=== PATIENT | female | born 1995 | race Caucasian/White ===

== ENCOUNTER 2016-03-28 | Outpatient (CLI) | payer OTHER | END 2016-03-28 06:21 | disposition critical access hospital (66) | CPT/HCPCS: A0425; A0429 ==

== ENCOUNTER 2016-03-28 06:41 | Emergency (ER) | payer OTHER ==
[2016-03-28] MEDS ORDERED: ONDANSETRON 4 MG/2 ML VIAL IVP STA (07:44)
[2016-03-28] MEDS ORDERED: SODIUM CHLORIDE 0.9% 1,000 ML IV ONE (07:44)
[2016-03-28] MEDS ORDERED: HYDROmorphone 1 MG/ML SYRINGE IVP STA (07:44)
[2016-03-28] MEDS ORDERED: KETOROLAC 60 MG/2 ML VIAL IVP STA (07:44)
[2016-03-28] MEDS ORDERED: ONDANSETRON 4 MG/2 ML VIAL ONE (07:48)
[2016-03-28] MEDS ORDERED: HYDROmorphone 1 MG/ML SYRINGE ONE (07:48)
[2016-03-28] MEDS ORDERED: KETOROLAC 30 MG/ML VIAL ONE (07:48)
[2016-03-28] MEDS ORDERED: cefTRIAXone 1 GM in SODIUM CHLORIDE 0.9% MINIBAG 100 ML IV STA (09:10)
[2016-03-28] MEDS ORDERED: cefTRIAXone 1 GM VIAL ONE (09:17)
== END 2016-03-28 11:01 | disposition home or self-care (01) ==
DX: O26.91 Pregnancy related conditions, unspecified, first trimester (principal); R10.32 Left lower quadrant pain; R10.31 Right lower quadrant pain; O23.11 Infections of bladder in pregnancy, first trimester; O99.511 Diseases of the respiratory system complicating pregnancy, first trimester; J06.9 Acute upper respiratory infection, unspecified; Z3A.10 10 weeks gestation of pregnancy

== ENCOUNTER 2016-03-28 20:04 | Emergency (ER) | payer OTHER ==
[2016-03-28] MEDS ORDERED: HYDROcod/ACETAM 5/325 MG TABLET PO STA (20:56)
[2016-03-28] MEDS ORDERED: cefTRIAXone 1 GM VIAL IM STA (20:56)
[2016-03-28] MEDS ORDERED: cefTRIAXone 1 GM VIAL ONE (20:59)
[2016-03-28] MEDS ORDERED: HYDROcod/ACETAM 5/325 MG TABLET ONE (20:59)
== END 2016-03-29 00:24 | disposition home or self-care (01) ==
DX: O23.01 Infections of kidney in pregnancy, first trimester (principal); O23.11 Infections of bladder in pregnancy, first trimester; O26.91 Pregnancy related conditions, unspecified, first trimester; R10.32 Left lower quadrant pain; R10.31 Right lower quadrant pain; O99.511 Diseases of the respiratory system complicating pregnancy, first trimester; J06.9 Acute upper respiratory infection, unspecified; Z3A.10 10 weeks gestation of pregnancy
CPT/HCPCS: 36415; 76705; 76801; 80053; 81001; 81003; 83690; 85025; 87275; 87276; 96365; 96372; 96375; 99283; 99284; A9270; J1170

== ENCOUNTER 2016-06-08 11:27 | Outpatient (CLI) | payer OTHER | END 2016-06-08 12:49 | disposition home or self-care (01) | DX: O23.12 Infections of bladder in pregnancy, second trimester (principal); Z3A.20 20 weeks gestation of pregnancy ==

== ENCOUNTER 2016-06-16 10:20 | Emergency (ER) | payer OTHER | END 2016-06-16 15:10 | disposition home or self-care (01) | DX: O99.89 Other specified diseases and conditions complicating pregnancy, childbirth and the puerperium (principal); R07.9 Chest pain, unspecified; M54.5 Low back pain; M25.512 Pain in left shoulder; Z3A.22 22 weeks gestation of pregnancy ==

== ENCOUNTER 2016-08-16 23:01 | Observation (INO) | payer OTHER ==
[2016-08-17 01:01] LABS: BASOPHILS % (AUTO) 0.4 %; EOSINOPHILS % (AUTO) 0.4 %; HCT - HEMATOCRIT 31.2 % (37.0-47.0); HGB - HEMOGLOBIN 10.3 g/dL (12.0-16.0); LYMPHOCYTES % (AUTO) 20.3 %; MEAN CORPUSCULAR HEMOGLOBIN 31.4 pg (27.0-31.0); MEAN CORPUSCULAR HGB CONC 33.1 g/dL (32.0-36.0); MEAN CORPUSCULAR VOLUME 94.8 fL (81.0-99.0); MEAN PLATELET VOLUME 6.6 fL (7.9-10.8); MONOCYTES % (AUTO) 10.1 %; NEUTROPHILS % (AUTO) 68.8 %; RED BLOOD COUNT 3.29 10^6/uL (4.20-5.40); RED CELL DISTRIBUTION WIDTH 13.2 % (12.0-15.0); UNCORRECTED WHITE BLOOD COUNT 20.9 x10^3/uL; WHITE BLOOD COUNT 20.9 x10^3/uL (4.8-10.8)
[2016-08-17 01:02] LABS: BILIRUBIN,URINE NEGATIVE (NEGATIVE)
[2016-08-17 01:09] LABS: WBC,URINE 0-3 /HPF (0-5)
[2016-08-17 01:55] LABS: BAND NEUTROPHILS % (MANUAL) 3 %; LYMPHOCYTES % (MANUAL) 23 %; NEUTROPHILS % (MANUAL) 64 %; TOTAL CELLS COUNTED 100
[2016-08-17 01:56] LABS: NP AUTO DIFFERENTIAL? YES; NP MAN DIFFERENTIAL? NO; PLATELET ESTIMATE, MANUAL INCREASED (>450,000) (NORMAL); PLATELET MORPHOLOGY NORMAL APPEARANCE (NORMAL)
[2016-08-17] MEDS ORDERED: LACTATED RINGERS 1,000 ML IV SCH ×2 (02:00→02:31)
[2016-08-17 02:01] LABS: ALBUMIN/GLOBULIN RATIO 0.8 (1.0-2.2); BILIRUBIN,TOTAL 0.2 mg/dL (0.2-1.0); BUN - BLOOD UREA NITROGEN < 5 mg/dL (6-20); CALCIUM 8.6 mg/dL (8.5-10.3); CARBON DIOXIDE - CO2 21 mmol/L (21-32); CHLORIDE 106 mmol/L (101-111); CREATININE 0.3 mg/dL (0.4-1.0); GFR - MDRD 284 (>89); GLUCOSE 102 mg/dL (70-100); POTASSIUM 3.6 mmol/L (3.5-5.0); SODIUM 134 mmol/L (135-145); TOTAL PROTEIN 6.4 g/dL (6.7-8.2)
[2016-08-17] MEDS ORDERED: SODIUM CHLORIDE FLUSH 0.9% 10 ML SYRINGE IVP PRN (02:21)
[2016-08-17 02:26] LABS: RAPID STREP SCREEN REAGENT QC YELLOW (YELLOW)
--- NOTE | 2016-08-17 03:46 | Ultrasound Preliminary Report ---
Exam: US Retroperitoneal IMPRESSION: 1. Mild bilateral hydronephrosis, possibly related to . 2. Bilateral ureteral jets are seen in the bladder. 3. Postvoid residual 42 cc. [facility] SITE ID: [id number]
--- NOTE | 2016-08-17 03:48 | Ultrasound Report ---
EXAM: RENAL ULTRASOUND EXAM DATE: 08/17/2016 03:23 AM. CLINICAL HISTORY: Elevated white count. Abdominal pain and back pain. Recent urinary tract infection. COMPARISON: None. TECHNIQUE: Real-time scanning was performed with static images obtained. FINDINGS: Right Kidney: 11.4 x 6.6 x 6.8 cm. Mild hydronephrosis. Left Kidney: 11.1 x 6.2 x 5.8 cm. Mild hydronephrosis. Bladder: Bilateral jets seen. The prevoid bladder volume was 154 cc. The postvoid bladder volume was 112 cc. IMPRESSION: 1. Mild bilateral hydronephrosis, possibly related to . 2. Bilateral ureteral jets are seen in the bladder. 3. Postvoid residual 42 cc. [facility] Referring Provider Line: [phone] SITE ID: [id number]
--- NOTE | 2016-08-17 03:53 | Ultrasound Preliminary Report ---
Exam: US OB Limited IMPRESSION: 1. Single live intrauterine gestation with normal interval growth concordant with the established EDC of 10/24/2016. 2. Normal LLOYD and placenta. [facility] SITE ID: [id number]
--- NOTE | 2016-08-17 03:55 | Ultrasound Report ---
EXAM: THIRD TRIMESTER OBSTETRIC ULTRASOUND EXAM DATE: 08/17/2016 03:16 AM. CLINICAL HISTORY: Elevated WBC, abd and back pain, recent UTI. LMP 01/18/2016. COMPARISON: 03/28/2016. TECHNIQUE: Real-time scanning performed with static images. FINDINGS: Fetus: Single live intrauterine gestation. Presentation: Oblique. Heart Rate: 156 beats per minute. Placenta: Anterior and fundal position. No placenta previa or abruption. Amniotic Fluid Index (LLOYD): 15.9 cm (normal 8-25). Biometry: Bi-parietal diameter (BPD): 7.5 cm = 30 weeks 1 days. Head circumference (HC): 27.3 cm = 29 weeks 6 days. Abdominal circumference (AC): 24.0 cm = 28 weeks 2 days. Femur length (FL): 5.5 cm = 28 weeks 6 days. Dates: Composite gestational age (this exam): 29 weeks 1 days (EDC 11/01/2016). Gestational age (based on LMP): 30 weeks 2 days (EDC 10/24/2016). Estimated weight: 1279 gm, 26.7 percentile. Maternal Structures: Cervix: Long and closed measuring 3.4 cm. Kidneys: See renal ultrasound report. IMPRESSION: 1. Single live intrauterine gestation with normal interval growth concordant with the established EDC of 10/24/2016. 2. Normal LLOYD and placenta. [facility] Referring Provider Line: [phone] SITE ID: [id number]
[2016-08-17] MEDS ORDERED: SODIUM CHLORIDE FLUSH 0.9% 10 ML SYRINGE IVP SCH (06:00)
[2016-08-17] MEDS ORDERED: POLYETHYLENE GLYCOL 3350 17 GM PACKET PO SCH (09:00)
--- NOTE | 2016-08-17 09:20 | HISTORY & PHYSICAL EXAMINATION ---
DATE OF ADMISSION: 08/17/2016 DIAGNOSES 1. Sporadic back pain; rule out labor. 2. Status post splenectomy. 3. No evidence of labor. HISTORY OF PRESENT ILLNESS: The patient is a 21-year-old primigravida at 30 weeks and 2 days gestation who receives her care at [facility] and reports 36 hours of periodic back pain and spasm and suspects labor. Pain begins in the lumbar region and radiates forward to the uterus. She has no suspicion of leaking fluid, foul discharge, or bloody show. She was seen earlier in the day at the [facility] and sent home with a negative urinalysis. 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 She states she has had vaccinations for pneumococcus, meningococcus, and influenza. She was seen roughly 10 days ago for a UTI and given a course of nitrofurantoin. Other obstetrical concerns include an AP contraction of the pelvis and she may be a candidate for section. ALLERGIES: PENICILLIN CAUSES HIVES AND SWELLING. MEDICATIONS 1. vitamins and iron. 2. Ranitidine. 3. Tylenol. PHYSICAL EXAMINATION GENERAL: The patient lying comfortably in bed, no distress. VITAL SIGNS: Temperature 36.4, blood pressure 99/57. fibronectin negative. HEENT: Supple neck. Moist mucous membranes. ABDOMEN: Laparotomy scar. No hepatosplenomegaly. No upper quadrant tenderness. UTERUS: Appropriate for 30 weeks, normal resting tone. No contractions palpable. EXTERNAL GENITALIA: No skin lesions. VAGINA: No blood, discharge, or fluid. CERVIX: Long, closed, thick and high. BONY PELVIS: Evaluation not accomplished. EXTERNAL HEART TRACING: Baseline 140s, accelerations, no contractions. Overall, cat 1. EXTREMITIES: Nonedematous. LABORATORY: Urinalysis pending. CBC pending. ASSESSMENT: The patient has periodic lumbar pain radiating to the uterus in suspected labor. Cervical examination does not find change and likelihood of labor low. The patient given reassurance that she is not in labor. Moreover, fibronectin is negative. The patient is status post splenectomy and is more vulnerable to infection. She states she has had the appropriate vaccinations. Splenectomy alone does not require routine prophylaxis. The patient had recent UTI and await urinalysis to prove clearance. PLAN: The patient was given reassurance and instructions to follow up at [facility] within 1 week unless there is evidence of infection. Antibiotic is not warranted. ADDENDUM -- WBC 22.6 W L SHIFT; HBG 10.3; PLT 550K -- PLACED ON OBSERVATION STATUS FOR WORK UP. JOB #: [id number] EXT JOB #:[id number] [facility]
[2016-08-17 09:31] VITALS: BP 117/59
[2016-08-17 09:31] LABS: BASOPHILS # (AUTO) 0.1 10^3/uL (0.0-0.1); BASOPHILS % (AUTO) 0.4 %; EOSINOPHILS # (AUTO) 0.1 10^3/uL (0.0-0.7); EOSINOPHILS % (AUTO) 0.5 %; HCT - HEMATOCRIT 29.7 % (37.0-47.0); HGB - HEMOGLOBIN 10.2 g/dL (12.0-16.0); LYMPHOCYTES # (AUTO) 2.5 10^3/uL (1.5-3.5); LYMPHOCYTES % (AUTO) 15.3 %; MEAN CORPUSCULAR HEMOGLOBIN 32.3 pg (27.0-31.0); MEAN CORPUSCULAR HGB CONC 34.3 g/dL (32.0-36.0); MEAN CORPUSCULAR VOLUME 94.1 fL (81.0-99.0); MEAN PLATELET VOLUME 6.6 fL (7.9-10.8); MONOCYTES # (AUTO) 1.7 10^3/uL (0.0-1.0); MONOCYTES % (AUTO) 10.2 %; NEUTROPHILS # (AUTO) 12.1 10^3/uL (1.5-6.6); NEUTROPHILS % (AUTO) 73.6 %; NUCLEATED RED BLOOD CELLS AUTO 0.2 /100WBC; RED BLOOD COUNT 3.15 10^6/uL (4.20-5.40); RED CELL DISTRIBUTION WIDTH 13.5 % (12.0-15.0); UNCORRECTED WHITE BLOOD COUNT 16.5 x10^3/uL; WHITE BLOOD COUNT 16.5 x10^3/uL (4.8-10.8)
[2016-08-17 10:04] LABS: ALBUMIN/GLOBULIN RATIO 0.9 (1.0-2.2); BILIRUBIN,TOTAL 0.4 mg/dL (0.2-1.0); BUN - BLOOD UREA NITROGEN < 5 mg/dL (6-20); CALCIUM 8.7 mg/dL (8.5-10.3); CARBON DIOXIDE - CO2 19 mmol/L (21-32); CHLORIDE 108 mmol/L (101-111); CREATININE 0.3 mg/dL (0.4-1.0); GFR - MDRD 284 (>89); GLUCOSE 86 mg/dL (70-100); POTASSIUM 3.9 mmol/L (3.5-5.0); SODIUM 136 mmol/L (135-145)
--- NOTE | 2016-08-17 11:56 | Discharge Plan ---
Discharge Plan Disposition: 01 Home, Self Care Condition: Good Diet: Regular Activity Restrictions: Activity as Tolerated Shower Restrictions: No Driving Restrictions: No Weight Bearing: Full Weight Additional Instructions or Follow Up instructions: REPORT: TEMP 101.5 OR GREATER; ABD/UTERINE TENDERNESS; LEAKING FLUID; RIGORS CALL [facility] [address] [facility] [address] [facility] ([phone]) FOR APPOINTMENT, YOU MUST BE SEEN WITHIN 1 WK OF TODAY'S DISCHARGE No Smoking: If you smoke, Please STOP! Call for help.
[2016-08-17 12:44] LABS: IRON 33 ug/dL (28-170); TOTAL IRON BINDING CAPACITY 490 ug/dL (250-450); TRANSFERRIN 350 mg/dL (192-382)
--- NOTE | 2016-08-17 12:51 | HISTORY & PHYSICAL EXAMINATION ---
DATE OF ADMISSION: 08/17/2016 DIAGNOSES 1. Sporadic back pain, not in labor. 2. Status post splenectomy. 3. Leukocytosis (21K)with left shift. 4. Thrombocytopenia (550K)). 5. Anemia (hemoglobin 10.3). 6. Mild Pharyngitis 7. 30 Week 2 Day HISTORY: The patient is a 23-year-old primigravida at 30 weeks and 2 days gestation based on an EDC of 10/24, (LMP 17 January, consistent with early ultrasound at 7 weeks of 10/26 BISHOP) who came complaining of periodic moderate back pain radiating to the uterus without suspicion of leaking membranes or vaginal discharge. The lumbar pain persistent for 36 hours, and she had been evaluated earlier at [facility] and released. The spastic pain continued and she was concerned about the possibility of labor. She does not report fevers or rigors. She does report at least 1 week of night sweats in which she awakes with perspiration on her bed clothing. She is status post splenectomy in 2010, after minor abdominal trauma during a bout of mononucleosis. Initially the spleen was repaired, but continued to leak that necessitated removal. Note this was done in [place], [place] at [facility]. Since then, she states that she has had pneumococcal, meningococcal and influenza vaccines this year.The patient denies recent URI symptoms, cough, etc. Approximately 10 days ago, she was treated for a UTI w course of Nitrofurantoin and her dysuria resolved. Recent CBC (21 June) shows white count 16.7, hemoglobin 11.4 with MCV of 101.6, platelets 533,000, neutrophils 77.1, monos 1.2. BASELINE LABS: O positive, antibody screen negative, Rubella immune, RPR negative, HIV negative, hepatitis B surface antigen negative. Urine culture negative. Baseline hemoglobin 13.4, platelets 50,000. GC chlamydia negative. Varicella immune. Triple screen negative. Glucola challenge test 144. Three- hour glucose tolerance test normal (72, 181, 119 and 60). PAST MEDICAL HISTORY: Splenectomy as noted above, SI joint pain. ALLERGIES: PENICILLIN CAUSES HIVES AND THROAT SWELLING. MEDICATIONS 1. vitamins. 2. Ranitidine. 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 She denies tobacco use, alcohol or recreational drug use. 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 FAMILY HISTORY 1. Maternal grandmother with cancer, stage IV, uncertain of primary. 2. Diabetes. 3. No congenital anomaly, mental retardation or known inheritable defect. REVIEW OF SYSTEMS CONSTITUTIONAL: Fatigue, night sweats without rigors. Denies fevers. HEENT: raspy throat, otherwise negative. PULMONARY: Negative. No Chronic Cough CARDIAC: negative. ABDOMEN: Occasionally lumbar pain radiates into the back. No bladder pain or dysuria. GENITOURINARY: Negative. MUSCULOSKELETAL: Negative. NEUROLOGIC: Negative. ENDOCRINE: Glucose intolerance. SKIN: No wounds PHYSICAL EXAMINATION VITAL SIGNS: T max 99.0, average 97.5, heart rate 95 to 80, blood pressure 99/ 57 and 119/70, respirations 20, pulse oximetry 98 to 99. HEENT: No trauma. Mild facial acne. Supple neck. Mild pharyngitis, strep culture taken. LUNGS: Clear to auscultation. CARDIAC: Regular, no murmur, no gallop. BREASTS: No reported mass or tenderness. ABDOMEN: Laparoscopy and mini laparoscopic scars. No hepatomegaly. No upper abdominal tenderness. No bladder tenderness. No CVA tenderness. UTERUS: appropriate for size. Normal resting tone. On first exam the patient did not note tenderness. On second exam she reports minimal uterine tenderness. efm: baseline 150s meets criteria for reactivity, moderate variability, no contractions, overall cat 1. EXTREMITIES: Survey of extremities finds no needle merino. No rash. Moves all 4 extremities well. LYMPHATIC: No subclavicular lymph node. Small mobile 5 x 10 mm agrawal-like nodular lymph node in the left axilla. No groin nodes. No subpopliteal nodes noted. NEUROLOGIC: Grossly intact. Patellar reflexes 2+ and equal. No obvious motor or sensory disturbance. ADMISSION LABS: White count 20.9, hemoglobin 10.3, left shift with high neutrophils 14 and lymphocytes, platelet morphology normal, platelets of 545, 000. Sodium 134, potassium 3.6, creatinine 0.3, glucose 102, total protein 6.4. Urinalysis normal except pH is 8.5. Negative protein, glucose, or ketones. No bacteria or leukocyte esterase. FFN neg Throat rapid strep neg. REPEAT LABS: White count 16.4, hemoglobin 10.2, platelets 545, elevated monocytes. GC chlamydia screen pending; Qferon TB test pending. Throat Strep screen pending. IMAGING Obstetrical ultrasound shows mendiola in oblique presentation. Normal- appearing placenta with LLOYD of 15.9. Ultrasound weight 1279, 27th percentile. Composite gestation 29 weeks 1 day, gestation by dates 30 weeks 2 days. Cervix long 3.4 cm. Abdominal ultrasound with mild hydronephrosis of right and left kidney, probably related to . ASSESSMENT: The patient initially presented with suspicion of labor, which was ruled out. However, she reports night sweats and had recent treatment of urinary tract infection. On today's urinalysis, the urinary tract infection is cleared without evidence of infection or blood. However, her white count remains significantly elevated with a left shift. June white count was elevated , but this may be due to the effects of the urinary tract infection. Splenectomy alone should not markedly elevate white blood count or platelets. Due to excitement, there is a possibility of WBC demargination and a boost in white blood count above a mildly elevated baseline. Careful evaluation for infection was required and time taken. Other than mild pharyngitis, there seems to be no infective source. In terms of chorioamnionitis , clinical exam and heart tracing does not seem to indicate intraamniotic infection at this time. The patient's elevated white count and thrombocytosis requires a second opinion with MFM and possibly Hematology. PLAN: The patient is safe to discharge home at this time after reviewing warning signs. She will report back immediately if she develops a fever of 100.5 , uterine tenderness, contractions or foul vaginal discharge. She will report any decreased movement. Arrangements will be made for [facility] evaluation. I discussed case with Dr. Bauer at [facility] ([phone]). He would like to see the patient within 1 week for evaluation. He recommends monthly CBCs and iron studies due to the anemia. I will coordinate this plan through [facility] [facility], Dr. Tiana Ibarra ([phone]). ANURAG ROSARIO MD, FACOG, FICS CC ANA BAUER JOB #: [id number] EXT JOB #:[id number] [facility]
[2016-08-19 22:03] LABS: TEST RESULT REPORT (())
== END 2016-08-17 12:25 | disposition home or self-care (01) ==
LOC: WFO 23:01 → OB 23:02 → WFO 08-17 02:22
PROVIDERS: ADMIT Obstetrics & Gynecology; ATTEND Obstetrics & Gynecology
DX: O23.13 Infections of bladder in pregnancy, third trimester (principal); B96.20 Unspecified Escherichia coli [E. coli] as the cause of diseases classified elsewhere; O99.113 Other diseases of the blood and blood-forming organs and certain disorders involving the immune mechanism complicating pregnancy, third trimester; D69.6 Thrombocytopenia, unspecified; O99.013 Anemia complicating pregnancy, third trimester; D64.9 Anemia, unspecified; O99.513 Diseases of the respiratory system complicating pregnancy, third trimester; J02.9 Acute pharyngitis, unspecified; Z3A.30 30 weeks gestation of pregnancy; Z90.81 Acquired absence of spleen; Z87.440 Personal history of urinary (tract) infections; Z88.0 Allergy status to penicillin
CPT/HCPCS: 36415; 76770; 76815; 80053; 81001; 81599; 82731; 83540; 84466; 85025; 87070; 87077; 87086; 87181; 87430; 87491; 87591; 96360; 96361; 99213; G0378

== ENCOUNTER 2017-01-22 03:03 | Emergency (ER) | payer OTHER ==
[2017-01-22] MEDS ORDERED: ONDANSETRON ODT 4 MG TABLET TL STA (03:17)
[2017-01-22] MEDS ORDERED: DICYCLOMINE 10 MG CAPSULE PO STA (03:18)
[2017-01-22] MEDS ORDERED: ONDANSETRON ODT 4 MG TABLET ONE (03:22)
[2017-01-22] MEDS ORDERED: DICYCLOMINE 10 MG CAPSULE PO ONE (03:26)
[2017-01-22 03:30] LABS: BILIRUBIN,URINE NEGATIVE (NEGATIVE)
[2017-01-22 03:32] LABS: HCG UR QUAL NEGATIVE; UA CHARGE (STRIP ONLY) YES; UR CULTURE IF IND NOT INDICATED
--- NOTE | 2017-01-22 03:42 | ED Physician Documentation ---
PD HPI NVD - Stated complaint Stated Complaint: VOMITING,ABD/BACK PX - Chief complaint Chief Complaint: Abd Pain - History obtained from History obtained from: Patient - History of Present Illness Timing - onset: Today Timing - details: Abrupt onset, Still present Associated symptoms: Abdominal pain Contributing factors: No: Sick contact, Bad food Similar symptoms before: No diagnosis Recently seen: Not recently seen - Additonal information Additional information: Patient is a 21 year old female with no significant past medical history who is presenting to the emergency department for vomiting and abdominal cramping. patient states that she woke up tonight with the urge to vomit. Patient states that she vomited twice at home and then again in the car. patient denies any sick contacts or diarrhea at this time. Review of Systems Constitutional: denies: Fever, Chills Eyes: denies: Decreased vision Ears: reports: Reviewed and negative Nose: reports: Reviewed and negative Throat: denies: Sore throat Cardiac: denies: Chest pain / pressure Respiratory: reports: Reviewed and negative GI: reports: Abdominal Pain, Nausea, Vomiting. denies: Constipation, Diarrhea : denies: Dysuria, Frequency, Discharge, Vaginal bleeding Skin: denies: Rash Musculoskeletal: denies: Back pain, Extremity pain Neurologic: reports: Generalized weakness. 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 - Past Surgical History Past Surgical History: Yes General: Splenectomy - Present Medications Home Medications: Ambulatory Orders Medication Instructions Recorded Confirmed Dicyclomine [Bentyl] 10 mg PO QID #20 capsule 01/22/17 Ondansetron Odt [Zofran] 4 mg TL Q6H PRN #14 tablet 01/22/17 - Allergies Allergies/Adverse Reactions: Allergies Allergy/AdvReac Type Severity Reaction Status Date / Time Penicillins Allergy Anaphylaxis Verified 01/22/17 03:09 - Social History Does the pt smoke?: No Smoking Status: Never smoker Does the pt drink ETOH?: No Does the pt have substance abuse?: No - Immunizations Immunizations are current?: Yes PD ED PE NORMAL - Vitals Vital signs reviewed: Yes - General General: Alert and oriented X 3, Well developed/nourished - HEENT HEENT: Atraumatic, PERRL, Pharynx benign - Neck Neck: Supple, no meningeal sign - Cardiac Cardiac: RRR, No murmur - Respiratory Respiratory: No respiratory distress, Clear bilaterally - Derm Derm: Normal color, Warm and dry, No rash - Extremities Extremities: No deformity, No edema - Neuro Neuro: Alert and oriented X 3, No motor deficit, No sensory deficit, Normal speech - Psych Psych: Normal mood PD ED PE EXPANDED - HEENT HEENT: Dry mucous membranes - Abdomen Abdomen: Hyperactive BS, Tender to palpation, Generalized/diffuse. No: Rebound , Guarding Results - Vitals Vitals: Vital Signs - 24 hr 01/22/17 03:09 Temperature 37.0 C Heart Rate 105 H Respiratory 18 Rate Blood Pressure 101/69 O2 Saturation 99 Oxygen O2 Source Room air - Labs Labs: Laboratory Tests 01/22/17 02:19 Urine Color YELLOW Urine Clarity CLEAR Urine pH 6.0 Ur Specific [place] >=1.030 H Urine Protein NEGATIVE Urine Glucose (UA) NEGATIVE Urine Ketones NEGATIVE Urine Occult Blood NEGATIVE Urine Nitrite NEGATIVE Urine Bilirubin NEGATIVE Urine Urobilinogen 0.2 (NORMAL) Ur Leukocyte Esterase NEGATIVE Ur Microscopic Review NOT INDICATED Urine Culture Comments NOT INDICATED Urine HCG, Qual NEGATIVE PD MEDICAL DECISION MAKING - ED course Complexity details: reviewed old records, reviewed results, re-evaluated patient , considered differential, d/w patient ED course: Patient was seen and examined at bedside. Patient's urine was collected. patient was treated with zofran and bentyl. Patient's urine showed no signs of dehydration. Patient was able to tolerate PO without difficulty. Patient required no further work up and was stable for discharge with outpatient follow up. Departure - Departure Disposition: 01 Home, Self Care Clinical Impression: Gastroenteritis Condition: Good Instructions: ED Gastroenteritis Viral Follow-Up: Tiana Ibarra MD [Primary Care Provider] - Within 3 Days Prescriptions: Dicyclomine [Bentyl] 10 mg PO QID #20 capsule Ondansetron Odt [Zofran] 4 mg TL Q6H PRN #14 tablet PRN Reason: Nausea / Vomiting Comments: Your symptoms are being caused by gastroenteritis. It is likely viral in nature but it is difficult to say. Either way it is treated the same way. it is self limited meaning it will get better on its own over the next few day. You should take the zofran for nausea and stay well hydrated with water and electrolyte solutions. You should follow up with your doctor if your symptoms persist for more than the next 3-4 days. You should make sure that you continually wash your hands so that you don't spread it to your child or partner.
[2017-01-22 03:53] VITALS: BP 106/67
== END 2017-01-22 03:53 | disposition home or self-care (01) ==
LOC: ED 03:03
DX: K52.9 Noninfective gastroenteritis and colitis, unspecified (principal)
CPT/HCPCS: 81003; 81025; 99283; A9270; Q0162; 81001; 87086

== ENCOUNTER 2017-05-02 19:55 | Emergency (ER) | payer OTHER ==
[2017-05-02 20:40] LABS: HCG,QUALITATIVE BLOOD POSITIVE
--- NOTE | 2017-05-02 21:19 | ED Physician Documentation ---
PD HPI FEMALE - Stated complaint Stated Complaint: TEST - Chief complaint Chief Complaint: General - History obtained from History obtained from: Patient - History of Present Illness Timing - onset: How many days ago (few days of lower abd cramping and feeling of nausea similar to prior .) Timing - duration: Days Timing - details: Gradual onset, Still present, Waxing and waning Associated symptoms: Back pain (lower), Pelvic pain, Vaginal bleeding (spotting) . No: Fever, Vaginal discharge, Genital sore/lesion, Dysuria, Urinary frequency Contributing factors: (did a home test today that was positive. Here for confirmation and also eval of cramping.). No: Exposed to STD OB-URBAN RENEWAL MANAGER History: G (2), P (1). No: Prior ectopic Similar symptoms before: Diagnosis (early ) Recently seen: Not recently seen Review of Systems Constitutional: denies: Fever, Chills Nose: denies: Rhinorrhea / runny nose, Congestion Throat: denies: Sore throat Respiratory: denies: Cough GI: reports: Abdominal Pain (lower abd/pelvic area midline), Nausea. denies: Vomiting : reports: LMP (3 weeks ago). denies: Dysuria, Frequency, Discharge, Missed period Skin: denies: Rash, Lesions Neurologic: denies: Generalized weakness, Near syncope PD PAST MEDICAL HISTORY - Past Medical History Cardiovascular: None Respiratory: None Neuro: None Endocrine/Autoimmune: None URBAN RENEWAL MANAGER: Ovarian cysts - Past Surgical History Past Surgical History: Yes General: Splenectomy /URBAN RENEWAL MANAGER: section - Present Medications Home Medications: Ambulatory Orders Medication Instructions Recorded Confirmed Ibuprofen [Motrin] 600 mg PO TID #20 tab 05/03/17 Ondansetron Odt [Zofran] 4 mg TL Q6H PRN #15 tablet 05/03/17 - Allergies Allergies/Adverse Reactions: Allergies Allergy/AdvReac Type Severity Reaction Status Date / Time Penicillins Allergy Anaphylaxis Verified 05/02/17 20:01 - Social History Does the pt smoke?: No Smoking Status: Never smoker Does the pt drink ETOH?: No Does the pt have substance abuse?: No - Immunizations Immunizations are current?: Yes - POLST Patient has POLST: No PD ED PE NORMAL - Vitals Vital signs reviewed: Yes - General General: Alert and oriented X 3, No acute distress, Well developed/nourished - HEENT HEENT: Pharynx benign - Neck Neck: Supple, no meningeal sign, No adenopathy - Cardiac Cardiac: RRR, No murmur - Respiratory Respiratory: Clear bilaterally - Abdomen Abdomen: Normal bowel sounds, Soft, Non distended, No organomegaly, Other (mild tender without guarding suprapubic area. No CVA tenderness. ) - Female Female : Deferred - Rectal Rectal: Deferred - Back Back: No CVA TTP - Derm Derm: Normal color, Warm and dry Results - Vitals Vitals: Vital Signs - 24 hr 05/02/17 05/02/17 19:58 23:21 Temperature 36.8 C Heart Rate 85 71 Respiratory 18 16 Rate Blood Pressure 132/77 H 101/58 L O2 Saturation 99 98 Oxygen O2 Source Room air - Labs Labs: Laboratory Tests 05/02/17 05/02/17 05/02/17 20:11 20:11 20:11 WBC 13.4 H RBC 4.45 Hgb 14.1 Hct 41.8 MCV 93.9 MCH 31.7 H MCHC 33.8 RDW 14.3 Plt Count 533 H MPV 7.1 L Neut # 7.8 H Lymph # 3.8 H Todd # 1.7 H Eos # 0.1 Baso # 0.1 Absolute Nucleated RBC 0.00 Nucleated RBC % 0.0 Serum HCG, Qual POSITIVE HCG, Quant 53.22 PD MEDICAL DECISION MAKING - ED course Complexity details: reviewed results (U/S did not show an IUP. There is corpus lutea 2 on left. No free fluid. Her quant is only 53 so negative finding on U/S common with early . Will need to repeat Quant and f/u with URBAN RENEWAL MANAGER/OB in a few days. ), considered differential, d/w patient Departure - Departure Disposition: 01 Home, Self Care Clinical Impression: Pelvic pain, Early stage of Condition: Stable Record reviewed to determine appropriate education?: Yes Instructions: ED Abdominal Pain Rule Out Ectopic Prescriptions: Ibuprofen [Motrin] 600 mg PO TID #20 tab Ondansetron Odt [Zofran] 4 mg TL Q6H PRN #15 tablet PRN Reason: Nausea / Vomiting Comments: You are very early in and your blood count for hCG is very low at 53. Follow-up with your primary care, call tomorrow for an appointment in about 2- 3 days. They will want to recheck that blood test to see if it is about doubled during that timeframe. He can use ibuprofen or naproxen 2-3 times daily for the pelvic pain and add Tylenol or hydrocodone if needed for worse pain. Ondansetron if needed for nausea. Drink lots of fluids. Your ultrasound did not show any in the uterus but is commonly that way this early in . There is a cyst on the left.
[2017-05-02] MEDS ORDERED: HYDROcod/ACETAM 5/325 MG TABLET PO STA (21:28)
[2017-05-02] MEDS ORDERED: IBUPROFEN 600 MG TABLET PO STA (21:28)
[2017-05-02 21:41] LABS: BASOPHILS # (AUTO) 0.1 10^3/uL (0.0-0.1); BASOPHILS % (AUTO) 0.5 %; EOSINOPHILS # (AUTO) 0.1 10^3/uL (0.0-0.7); EOSINOPHILS % (AUTO) 0.7 %; HGB - HEMOGLOBIN 14.1 g/dL (12.0-16.0); LYMPHOCYTES # (AUTO) 3.8 10^3/uL (1.5-3.5); MEAN CORPUSCULAR HEMOGLOBIN 31.7 pg (27.0-31.0); MEAN CORPUSCULAR HGB CONC 33.8 g/dL (32.0-36.0); MEAN CORPUSCULAR VOLUME 93.9 fL (81.0-99.0); MEAN PLATELET VOLUME 7.1 fL (7.9-10.8); MONOCYTES # (AUTO) 1.7 10^3/uL (0.0-1.0); MONOCYTES % (AUTO) 12.5 %; NEUTROPHILS # (AUTO) 7.8 10^3/uL (1.5-6.6); NEUTROPHILS % (AUTO) 58.3 %; PLT - PLATELET COUNT 533 10^3/uL (130-450); RED BLOOD COUNT 4.45 10^6/uL (4.20-5.40); RED CELL DISTRIBUTION WIDTH 14.3 % (12.0-15.0); WHITE BLOOD COUNT 13.4 x10^3/uL (4.8-10.8)
[2017-05-02] MEDS ORDERED: HYDROcod/ACETAM 5/325 MG TABLET ONE (21:54)
--- NOTE | 2017-05-02 23:54 | Ultrasound Report ---
EXAM: FIRST TRIMESTER OBSTETRIC ULTRASOUND (Less than 11 weeks) EXAM DATE: 05/02/2017 11:23 PM. CLINICAL HISTORY: Lower abdominal pain; early . LMP: 2-2-18, EGA 3 weeks 3 days, BISHOP 01/13/2018. COMPARISONS: OB ultrasound 08/17/2016. TECHNIQUE: Transabdominal and transvaginal ultrasound examination with static image documentation. ASSESSMENT: No definite intrauterine gestational sac is seen. No definite evidence for intrauterine p regnancy. MATERNAL STRUCTURES: Uterus: Retroverted. Unremarkable. Endometrial thickness measures 1 cm. Cervix: Closed. Right Ovary/Adnexa: Unremarkable. The ovary measures 3 x 1.7 x 2.5 cm, volume 6.8 cc. Left Ovary/Adnexa: There appear to be 2 corpus lutea in the left ovary. The ovary measures 3 x 2.4 x 3.7 cm, volume 13.9 cc. Free Fluid: None. IMPRESSION: 1. No definite evidence for an intrauterine . No definite intrauterine gestational sac seen. 2. There appear to be 2 corpus lutea in the left ovary. 3. No evidence for an ectopic . An ectopic is not excluded. Correlate with the ser ial beta hCGs. A follow-up OB ultrasound could be obtained to reevaluate. 4. No free fluid. [facility] Referring Provider Line: [phone] SITE ID: [id number]
[2017-05-03] MEDS ORDERED: HYDROcod/ACET 5/325 Prepack 6 PO STA (00:07)
[2017-05-03 00:15] VITALS: BP 105/58
== END 2017-05-03 00:15 | disposition home or self-care (01) ==
LOC: ED 19:55
DX: O26.891 Other specified pregnancy related conditions, first trimester (principal); R10.2 Pelvic and perineal pain
CPT/HCPCS: 76801; 76817; 84702; 84703; 85025; 99283; A9270

== ENCOUNTER 2017-05-09 18:40 | Emergency (ER) | payer OTHER ==
[2017-05-09 20:44] LABS: BILIRUBIN,URINE NEGATIVE (NEGATIVE); GLUCOSE, URINE (UA) NEGATIVE (NEGATIVE); KETONES,URINE (UA) NEGATIVE (NEGATIVE); LEUKOCYTE ESTERASE, URINE NEGATIVE (NEGATIVE); NITRITE,URINE POSITIVE (NEGATIVE); OCCULT BLOOD,URINE NEGATIVE (NEGATIVE); PROTEIN,URINE NEGATIVE (NEGATIVE); UROBILINOGEN,URINE 2 E.U./dL (NORMAL)
[2017-05-09 20:48] LABS: CLARITY,URINE CLOUDY (CLEAR); HCG UR QUAL POSITIVE
[2017-05-09 20:59] LABS: BACTERIA,URINE Many /HPF (None Seen); RBC,URINE 0-5 /HPF (0-5); SQUAMOUS EPITHELIAL CELL,UR MOD Squamous (<= Few)
--- NOTE | 2017-05-09 22:08 | Ultrasound Report ---
EXAM: PLEASE SEE ACCOMPANYING FIRST TRIMESTER OB ULTRASOUND REPORT. Referring Provider Line: [phone] SITE ID: [id number]
--- NOTE | 2017-05-09 22:13 | Ultrasound Report ---
EXAM: FIRST TRIMESTER OBSTETRIC ULTRASOUND (Less than 11 weeks) EXAM DATE: 05/09/2017 09:50 PM. CLINICAL HISTORY: Vaginal bleeding LMP: 04/08/2017. COMPARISONS: 05/02/2017. TECHNIQUE: Transabdominal and transvaginal ultrasound examination with static image documentation. ASSESSMENT: Gestational Sac: Possible intrauterine gestational sac. Diameter is 0.4 cm. Embryo: Not seen. Cardiac activity: Not seen. Yolk sac: Not seen. Other: No perigestational fluid collection demonstrated. MATERNAL STRUCTURES: Uterus: Anteverted/Retroverted. Unremarkable. Cervix: Closed. Right Ovary/Adnexa: Unremarkable. The ovary measures 2.4 x 2.1 x 2.4 cm, volume 6 cc. Left Ovary/Adnexa: There are 2 small complex left ovarian cysts.. The ovary measures 3.7 x 2.1 x 3.9 cm, volume 16 cc. Free Fluid: None. Other: None. IMPRESSION: 1. There is a 0.4 cm anechoic focus within the endometrium. Differential considerations include early intrauterine gestational sac or endometrial cyst. 2. No suspicious adnexal abnormalities are seen. [facility] Referring Provider Line: [phone] SITE ID: [id number]
[2017-05-09] MEDS ORDERED: NITROFURANTOIN MACRO 100 MG CAPSULE PO STA (22:23)
--- NOTE | 2017-05-09 22:26 | ED Physician Documentation ---
PD HPI FEMALE - Stated complaint Stated Complaint: ABD PX - Chief complaint Chief Complaint: Abd Pain - History obtained from History obtained from: Patient - History of Present Illness Timing - onset: How many days ago (4) Timing - details: Gradual onset, Still present Associated symptoms: Abdominal pain, Pelvic pain. No: Vaginal pain, Vaginal bleeding, Vaginal discharge, Urinary frequency Contributing factors: Similar symptoms before: Work up / diagnostics, Treatment Recently seen: Emergency Dept - Additional information Additional information: Patient is a 21 year old female who is presenting to the emergency department for abdominal pain. Patient was recently seen and found to have ovarian cysts and low beta hcg but no confirmed . Patient has had persistent pain even though she has been taking hydrocodone. Review of Systems Constitutional: denies: Fever, Chills Eyes: reports: Reviewed and negative Ears: reports: Reviewed and negative Nose: reports: Reviewed and negative Throat: reports: Reviewed and negative Cardiac: reports: Reviewed and negative Respiratory: reports: Reviewed and negative GI: reports: Abdominal Pain. denies: Nausea, Vomiting, Constipation, Diarrhea : reports: Missed period. 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: Ovarian cysts Other Past Medical History: , gestational age unknown - Past Surgical History Past Surgical History: Yes General: Splenectomy /ASSEMBLER CLIP ON SUNGLASSES: section - Present Medications Home Medications: Ambulatory Orders Medication Instructions Recorded Confirmed Ibuprofen [Motrin] 600 mg PO TID #20 tab 05/03/17 Ondansetron Odt [Zofran] 4 mg TL Q6H PRN #15 tablet 05/03/17 HYDROcod/ACETAM 5/325 [[place] 5/325] 1 tab PO PRN PRN 05/09/17 05/09/17 Nitrofurantoin Monohyd/M-Cryst 100 mg PO BID 5 Days capsule 05/09/17 [Macrobid 100 mg Capsule] - Allergies Allergies/Adverse Reactions: Allergies Allergy/AdvReac Type Severity Reaction Status Date / Time Penicillins Allergy Anaphylaxis Verified 05/09/17 18:58 - Social History Does the pt smoke?: No Smoking Status: Never smoker Does the pt drink ETOH?: No Does the pt have substance abuse?: No - Immunizations Immunizations are current?: Yes - POLST Patient has POLST: No PD ED PE NORMAL - Vitals Vital signs reviewed: Yes - General General: Alert and oriented X 3, No acute distress - HEENT HEENT: Atraumatic - Neck Neck: Supple, no meningeal sign - Cardiac Cardiac: RRR - Respiratory Respiratory: No respiratory distress - Abdomen Abdomen: Soft - Female Female : Deferred - Derm Derm: Normal color, Warm and dry - Extremities Extremities: No deformity - Neuro Neuro: Alert and oriented X 3, No motor deficit, No sensory deficit, Normal speech Eye Opening: Spontaneous Motor: Obeys Commands Verbal: Oriented GCS Score: 15 - Psych Psych: Normal mood PD ED PE EXPANDED - Abdomen Abdomen: Tender to palpation, Suprapubic. No: Rebound, Guarding Results - Vitals Vitals: Vital Signs - 24 hr 05/09/17 05/09/17 05/09/17 18:54 20:45 22:35 Temperature 36.6 C Heart Rate 85 85 80 Respiratory 14 18 16 Rate Blood Pressure 119/66 116/67 106/66 O2 Saturation 100 98 95 Oxygen O2 Source Room air - Labs Labs: Laboratory Tests 05/09/17 05/09/17 05/09/17 20:37 20:37 20:50 HCG, Quant 2301.00 Urine Color Cancelled YELLOW Urine Clarity Cancelled CLOUDY Urine pH Cancelled 6.0 Ur Specific [place] Cancelled >=1.030 H Urine Protein Cancelled NEGATIVE Urine Glucose (UA) Cancelled NEGATIVE Urine Ketones Cancelled NEGATIVE Urine Occult Blood Cancelled NEGATIVE Urine Nitrite Cancelled POSITIVE H Urine Bilirubin Cancelled NEGATIVE Urine Urobilinogen Cancelled 2 H Ur Leukocyte Esterase Cancelled NEGATIVE Urine RBC 0-5 Urine WBC 6-10 H Ur Squamous Epith Cells MOD Squamous H Urine Bacteria Many H Ur Microscopic Review Cancelled INDICATED Urine Culture Comments Cancelled NOT INDICATED Urine HCG, Qual POSITIVE - Rads (name of study) pelvic ultrasound Radiology: Final report received (possible yolk sac est 4 weeks, intrauterine, other ovarian cysts) PD MEDICAL DECISION MAKING - ED course Complexity details: reviewed old records, reviewed results, re-evaluated patient , considered differential, d/w patient ED course: Patient was seen and examined at beside. urine, beta hcg quant and imaging were ordered. When patient returned from imaging the results were reviewed. Patient's beta was increasing as expected and patient appeared to have an IUp. Patient was treated with macrobid for a urinary tract infection. Patient required no further inpatient work up and was stable for discharge with outpatient follow up. Departure - Departure Disposition: 01 Home, Self Care Clinical Impression: , Urinary tract infection Condition: Good Instructions: ED UTI Cystitis Female Follow-Up: primary,care provider [Other] Prescriptions: Nitrofurantoin Monohyd/M-Cryst [Macrobid 100 mg Capsule] 100 mg PO BID 5 Days capsule Comments: Your diagnostics today showed that you do have an early at about 4 weeks. You also have a urinary tract infection. You will can take tylenol as needed for pain and macrobid, an antibiotic twice a day for 5 days. It is important to stay well hydrated and get plenty of rest. You should follow up with your ob this week. You may return to the emergency department at any time for new, worsening or uncontrollable symptoms. Discharge Date/Time: 05/09/17 22:35
[2017-05-09 22:35] VITALS: BP 106/66
== END 2017-05-09 22:35 | disposition home or self-care (01) ==
LOC: ED 18:40
DX: O23.41 Unspecified infection of urinary tract in pregnancy, first trimester (principal); Z3A.01 Less than 8 weeks gestation of pregnancy
CPT/HCPCS: 36415; 76801; 76817; 81001; 81025; 84702; 99283; 99284; A9270; 81003; 87086

== ENCOUNTER 2017-10-05 09:16 | Outpatient (CLI) | payer OTHER ==
[2017-10-05 09:53] VITALS: BP 114/73
[2017-10-05 10:05] LABS: BILIRUBIN,URINE NEGATIVE (NEGATIVE); GLUCOSE, URINE (UA) NEGATIVE (NEGATIVE); KETONES,URINE (UA) NEGATIVE (NEGATIVE); LEUKOCYTE ESTERASE, URINE NEGATIVE (NEGATIVE); NITRITE,URINE POSITIVE (NEGATIVE); OCCULT BLOOD,URINE NEGATIVE (NEGATIVE); PH,URINE 7.5 PH (5.0-7.5); PROTEIN,URINE NEGATIVE (NEGATIVE); UROBILINOGEN,URINE 0.2 (NORMAL) E.U./dL (NORMAL)
[2017-10-05 10:06] LABS: CLARITY,URINE HAZY (CLEAR)
[2017-10-05 10:28] LABS: BACTERIA,URINE Many /HPF (None Seen); RBC,URINE 0-5 /HPF (0-5); SQUAMOUS EPITHELIAL CELL,UR MOD Squamous (<= Few)
[2017-10-05] MEDS ORDERED: SULFAMETH/TRIMETH DS 800/160 MG TABLET PO ONE (10:41)
== END 2017-10-05 10:55 | disposition home or self-care (01) ==
LOC: WFO 09:16 → FBP 09:19 → WFO 10:55
PROVIDERS: ATTEND Obstetrics & Gynecology
DX: O23.42 Unspecified infection of urinary tract in pregnancy, second trimester (principal); Z3A.25 25 weeks gestation of pregnancy
CPT/HCPCS: 81001; 87086; 87181; 99213; A9270; 81003

== ENCOUNTER 2017-10-22 18:16 | Emergency (ER) | payer OTHER ==
[2017-10-22 18:37] VITALS: BP 110/60
--- NOTE | 2017-10-22 18:47 | ED Physician Documentation ---
History of Present Illness - Stated complaint Stated Complaint: 28 WKS/BACK PX - Chief complaint Chief Complaint: Abd Pain - History obtained from History obtained from: Patient - History of Present Illness Timing: Today Pain level max: 4 Pain level now: 4 Improved by: nothing Worsened by: nothing - Additonal information Additional information: Patient is a 22-year-old female, 2 para 1 who presents to the emergency department with lower abdominal cramping, lower back cramping similar to prior labor. States that she had labor at approximately 24 weeks estimated gestational age with her first . She states she did have a slight amount of bleeding when wiping with the toilet paper today. No vomiting. No fevers. She is seen at the [facility], Dr. 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: Ovarian cysts - Past Surgical History Past Surgical History: Yes General: Splenectomy /SENIOR QA ENGINEER: section - Present Medications Home Medications: Ambulatory Orders Medication Instructions Recorded Confirmed Ibuprofen [Motrin] 600 mg PO TID #20 tab 05/03/17 Ondansetron Odt [Zofran] 4 mg TL Q6H PRN #15 tablet 05/03/17 HYDROcod/ACETAM 5/325 [[place] 5/325] 1 tab PO PRN PRN 05/09/17 05/09/17 Nitrofurantoin Monohyd/M-Cryst 100 mg PO BID 5 Days capsule 05/09/17 [Macrobid 100 mg Capsule] - Allergies Allergies/Adverse Reactions: Allergies Allergy/AdvReac Type Severity Reaction Status Date / Time Penicillins Allergy Anaphylaxis Verified 05/09/17 18:58 - Social History Does the pt smoke?: No Smoking Status: Never smoker Does the pt drink ETOH?: No Does the pt have substance abuse?: No - Immunizations Immunizations are current?: Yes - POLST Patient has POLST: No PD ED PE NORMAL - Vitals Vital signs reviewed: Yes - General General: Alert and oriented X 3, No acute distress - HEENT HEENT: PERRL - Neck Neck: Supple, no meningeal sign - Cardiac Cardiac: RRR - Respiratory Respiratory: No respiratory distress, Clear bilaterally - Abdomen Abdomen: Soft, Non tender, Other (gravid) - Back Back: No CVA TTP, No spinal TTP - Derm Derm: Warm and dry - Extremities Extremities: No edema, No calf tenderness / cord - Neuro Neuro: Alert and oriented X 3 - Psych Psych: Normal mood, Normal affect Results - Vitals Vitals: Vital Signs - 24 hr 10/22/17 18:35 Temperature 36.5 C Heart Rate 96 Respiratory 16 Rate Blood Pressure 110/60 O2 Saturation 99 Oxygen O2 Source Room air PD MEDICAL DECISION MAKING - ED course Complexity details: considered differential, d/w patient, d/w field technical support consultant ED course: Discussed the case with Dr. Badillo, OB on-call at 1840. Bedside ultrasound reveals a intrauterine with a heart rate of 140 bpm. Good movement. Patient will be sent to OB for further care. This document was made in part using voice recognition software. While efforts are made to proofread this document, sound alike and grammatical errors may occur. - Sepsis Event Vital Signs: Vital Signs - 24 hr 10/22/17 18:35 Temperature 36.5 C Heart Rate 96 Respiratory 16 Rate Blood Pressure 110/60 O2 Saturation 99 Oxygen O2 Source Room air Departure - Departure Disposition: ED Place in Observation Clinical Impression: Qualifiers: Weeks of gestation: 28 weeks Qualified Code(s): Z3A.28 - 28 weeks gestation of Abdominal pain Qualifiers: Abdominal location: lower abdomen, unspecified Qualified Code(s): R10.30 - Lower abdominal pain, unspecified Back pain Qualifiers: Back pain location: low back pain Chronicity: acute Back pain laterality: midline Sciatica presence: without sciatica Qualified Code(s): M54.5 - Low back pain Condition: Stable Discharge Date/Time: 10/22/17 19:19
== END 2017-10-22 19:19 ==
LOC: ED 18:16
DX: O23.13 Infections of bladder in pregnancy, third trimester (principal); Z3A.28 28 weeks gestation of pregnancy
CPT/HCPCS: 81001; 82731; 87086; 87181; 99213; 99283

== ENCOUNTER 2017-10-22 19:20 | Outpatient (CLI) | payer OTHER ==
[2017-10-22 20:13] LABS: BILIRUBIN,URINE NEGATIVE (NEGATIVE); GLUCOSE, URINE (UA) NEGATIVE (NEGATIVE); KETONES,URINE (UA) NEGATIVE (NEGATIVE); LEUKOCYTE ESTERASE, URINE NEGATIVE (NEGATIVE); NITRITE,URINE POSITIVE (NEGATIVE); OCCULT BLOOD,URINE NEGATIVE (NEGATIVE); PH,URINE 7.5 PH (5.0-7.5); PROTEIN,URINE TRACE mg/dL (NEGATIVE); UROBILINOGEN,URINE 0.2 (NORMAL) E.U./dL (NORMAL)
[2017-10-22 20:24] LABS: CLARITY,URINE HAZY (CLEAR)
[2017-10-22 20:25] LABS: AMORPHOUS SEDIMENT,UR Few /LPF; BACTERIA,URINE Many /HPF (None Seen); RBC,URINE 0-5 /HPF (0-5); SQUAMOUS EPITHELIAL CELL,UR RARE Squamous (<= Few)
[2017-10-23 00:41] VITALS: BP 110/65
== END 2017-10-22 21:48 | disposition home or self-care (01) ==
LOC: WFO 19:20 → FBP 19:28 → WFO 21:48
PROVIDERS: ATTEND Obstetrics & Gynecology
DX: O23.13 Infections of bladder in pregnancy, third trimester (principal); Z3A.28 28 weeks gestation of pregnancy
CPT/HCPCS: 81001; 82731; 87086; 99213

== ENCOUNTER 2018-04-11 22:38 | Emergency (ER) | payer OTHER ==
[2018-04-11 23:31] LABS: BILIRUBIN,URINE NEGATIVE (NEGATIVE); GLUCOSE, URINE (UA) NEGATIVE (NEGATIVE); KETONES,URINE (UA) NEGATIVE (NEGATIVE); LEUKOCYTE ESTERASE, URINE NEGATIVE (NEGATIVE); NITRITE,URINE NEGATIVE (NEGATIVE); OCCULT BLOOD,URINE TRACE-INTA (NEGATIVE); PROTEIN,URINE NEGATIVE (NEGATIVE); UROBILINOGEN,URINE 1 (NORMAL) E.U./dL (NORMAL)
[2018-04-11 23:37] LABS: CLARITY,URINE CLEAR (CLEAR); HCG UR QUAL NEGATIVE
[2018-04-11 23:38] LABS: BASOPHILS # (AUTO) 0.1 10^3/uL (0.0-0.1); BASOPHILS % (AUTO) 0.9 %; EOSINOPHILS # (AUTO) 0.1 10^3/uL (0.0-0.7); EOSINOPHILS % (AUTO) 0.8 %; HGB - HEMOGLOBIN 13.7 g/dL (12.0-16.0); LYMPHOCYTES # (AUTO) 3.3 10^3/uL (1.5-3.5); LYMPHOCYTES % (AUTO) 23.3 %; MEAN CORPUSCULAR HEMOGLOBIN 30.7 pg (27.0-31.0); MEAN CORPUSCULAR HGB CONC 33.9 g/dL (32.0-36.0); MEAN CORPUSCULAR VOLUME 90.8 fL (81.0-99.0); MEAN PLATELET VOLUME 6.7 fL (7.9-10.8); MONOCYTES # (AUTO) 1.7 10^3/uL (0.0-1.0); NEUTROPHILS # (AUTO) 9.1 10^3/uL (1.5-6.6); PLT - PLATELET COUNT 563 10^3/uL (130-450); RED BLOOD COUNT 4.45 10^6/uL (4.20-5.40); RED CELL DISTRIBUTION WIDTH 15.8 % (12.0-15.0); WHITE BLOOD COUNT 14.4 x10^3/uL (4.8-10.8)
[2018-04-11 23:44] LABS: ALBUMIN 3.8 g/dL (3.2-5.5); ALBUMIN/GLOBULIN RATIO 1.2 (1.0-2.2); BILIRUBIN,TOTAL 0.4 mg/dL (0.2-1.0); CREATININE 0.4 mg/dL (0.4-1.0); TOTAL PROTEIN 6.9 g/dL (6.7-8.2)
[2018-04-11 23:46] LABS: INR 1.2 (0.8-1.2); PT - PROTHROMBIN TIME 13.2 secs (9.9-12.6)
--- NOTE | 2018-04-12 00:02 | ED Physician Documentation ---
PD HPI FEMALE - Stated complaint Stated Complaint: FEM /BLEEDING - Chief complaint Chief Complaint: Abd Pain - History obtained from History obtained from: Patient - History of Present Illness Timing - onset: Today Timing - details: Gradual onset Severity Comments: Moderate Associated symptoms: Vaginal bleeding. No: Fever, Chest/shoulder pain, Abdominal pain, Back pain, Pelvic pain, Vaginal pain, Vaginal discharge, Genital sore/lesion, Dysuria, Urinary frequency, Hematuria Contributing factors: No: , control, Oral contraceptive, Depo, IUD, Condoms, Tubal ligation, Hysterectomy Similar symptoms before: Has not had sx before Recently seen: Not recently seen - Additional information Additional information: 22-year-old female status post a recent back in January and this is h er third Menstrual cycle since delivering. The patient has had 1 day of vaginal bleeding and reports a very heavy flow which is different from her prior periods before . The patient has no abdominal pain or pelvic pain. The patient denies syncope or being lightheaded. 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: Endometriosis, Ovarian cysts : Benign prostate hypertrophy Psych: None Musculoskeletal: None - Past Surgical History Past Surgical History: Yes General: Splenectomy /FABRICATION ENGINEER: section - Present Medications Home Medications: Ambulatory Orders Medication Instructions Recorded Confirmed Ibuprofen [Motrin] 600 mg PO TID #20 tab 05/03/17 Ondansetron Odt [Zofran] 4 mg TL Q6H PRN #15 tablet 05/03/17 HYDROcod/ACETAM 5/325 [[place] 5/325] 1 tab PO PRN PRN 05/09/17 05/09/17 Nitrofurantoin Monohyd/M-Cryst 100 mg PO BID 5 Days capsule 05/09/17 [Macrobid 100 mg Capsule] - Allergies Allergies/Adverse Reactions: Allergies Allergy/AdvReac Type Severity Reaction Status Date / Time Penicillins Allergy Anaphylaxis Verified 04/11/18 22:45 - Social History Does the pt smoke?: No Smoking Status: Never smoker Does the pt drink ETOH?: No Does the pt have substance abuse?: No - Immunizations Immunizations are current?: Yes - POLST Patient has POLST: No PD ED PE NORMAL - General General: Alert and oriented X 3, No acute distress - HEENT HEENT: Atraumatic, PERRL, EOMI, Ears normal - Neck Neck: Supple, no meningeal sign - Cardiac Cardiac: RRR, Strong equal pulses - Respiratory Respiratory: No respiratory distress - Abdomen Abdomen: Soft, Non tender, Non distended - Derm Derm: Normal color - Extremities Extremities: No deformity - Neuro Neuro: Alert and oriented X 3, Normal speech - Psych Psych: Normal affect Results - Vitals Vitals: Vital Signs - 24 hr 04/11/18 22:42 Temperature 36.0 C L Heart Rate 83 Respiratory 16 Rate Blood Pressure 107/64 O2 Saturation 97 Oxygen O2 Source Room air - Labs Labs: Laboratory Tests 04/11/18 04/11/18 04/11/18 23:15 23:25 23:25 WBC 14.4 H RBC 4.45 Hgb 13.7 Hct 40.4 MCV 90.8 MCH 30.7 MCHC 33.9 RDW 15.8 H Plt Count 563 H MPV 6.7 L Neut # (Auto) 9.1 H Lymph # (Auto) 3.3 [place] # (Auto) 1.7 H Eos # (Auto) 0.1 Baso # (Auto) 0.1 Absolute Nucleated RBC 0.01 Nucleated RBC % 0.1 PT 13.2 H INR 1.2 Sodium Potassium Chloride Carbon Dioxide Anion Gap BUN Creatinine Estimated GFR (MDRD) Glucose Calcium Total Bilirubin AST ALT Alkaline Phosphatase Total Protein Albumin Globulin Albumin/Globulin Ratio Lipase Urine Color YELLOW Urine Clarity CLEAR Urine pH 6.0 Ur Specific [place] >=1.030 H Urine Protein NEGATIVE Urine Glucose (UA) NEGATIVE Urine Ketones NEGATIVE Urine Occult Blood TRACE-INTA Urine Nitrite NEGATIVE Urine Bilirubin NEGATIVE Urine Urobilinogen 1 (NORMAL) Ur Leukocyte Esterase NEGATIVE Ur Microscopic Review NOT INDICATED Urine Culture Comments NOT INDICATED Urine HCG, Qual NEGATIVE 04/11/18 23:25 WBC RBC Hgb Hct MCV MCH MCHC RDW Plt Count MPV Neut # (Auto) Lymph # (Auto) [place] # (Auto) Eos # (Auto) Baso # (Auto) Absolute Nucleated RBC Nucleated RBC % PT INR Sodium 136 Potassium 3.6 Chloride 103 Carbon Dioxide 25 Anion Gap 8.0 BUN 8 Creatinine 0.4 Estimated GFR (MDRD) 201 Glucose 107 H Calcium 9.0 Total Bilirubin 0.4 AST 20 ALT 20 Alkaline Phosphatase 79 Total Protein 6.9 Albumin 3.8 Globulin 3.1 Albumin/Globulin Ratio 1.2 Lipase 29 Urine Color Urine Clarity Urine pH Ur Specific [place] Urine Protein Urine Glucose (UA) Urine Ketones Urine Occult Blood Urine Nitrite Urine Bilirubin Urine Urobilinogen Ur Leukocyte Esterase Ur Microscopic Review Urine Culture Comments Urine HCG, Qual PD MEDICAL DECISION MAKING - ED course ED course: The patient had 1 day of her menstrual bleeding which is been heavier than normal. The patient denies any acute pain or discomfort. The patient has no evidence of a drop in hemoglobin requiring transfusion. Currently, I do not see a an acute indication for imaging. The patient appears appropriate for discharge and ongoing outpatient management. The patient will follow up with primary care. The patient will return to the emergency department for any worsening or any concerns Departure - Departure Disposition: 01 Home, Self Care Clinical Impression: Vaginal bleeding Condition: Good Instructions: ED Bleed Irregular Vaginal Follow-Up: LIVIER Garcia [Provider Group] - Within 1 week Comments: Please return to the emergency department for worsening symptoms or any concerns
[2018-04-12 00:17] VITALS: BP 103/70
== END 2018-04-12 00:16 | disposition home or self-care (01) ==
LOC: ED 22:38
DX: N93.9 Abnormal uterine and vaginal bleeding, unspecified (principal)
CPT/HCPCS: 36415; 80053; 81001; 81003; 81025; 83690; 85025; 85610; 87086; 99282; 99283

== ENCOUNTER 2018-06-22 15:30 | Emergency (ER) | payer OTHER ==
[2018-06-22 16:40] LABS: BILIRUBIN,URINE NEGATIVE (NEGATIVE); GLUCOSE, URINE (UA) NEGATIVE (NEGATIVE); KETONES,URINE (UA) NEGATIVE (NEGATIVE); LEUKOCYTE ESTERASE, URINE NEGATIVE (NEGATIVE); NITRITE,URINE NEGATIVE (NEGATIVE); OCCULT BLOOD,URINE MODERATE (NEGATIVE); PROTEIN,URINE NEGATIVE (NEGATIVE); UROBILINOGEN,URINE 0.2 (NORMAL) E.U./dL (NORMAL)
[2018-06-22 16:41] LABS: CLARITY,URINE CLEAR (CLEAR); HCG UR QUAL NEGATIVE
[2018-06-22 16:45] LABS: BACTERIA,URINE Many /HPF (None Seen); MUCUS,URINE Few Strands; SQUAMOUS EPITHELIAL CELL,UR MANY Squamous (<= Few); YEAST,URINE PRESENT
--- NOTE | 2018-06-22 17:22 | ED Physician Documentation ---
PD HPI ABD PAIN - Stated complaint Stated Complaint: ABD PX/DISCHARGE - Chief complaint Chief Complaint: Abd Pain - History obtained from History obtained from: Patient - History of Present Illness Timing - onset: How many weeks ago (has had some lower abd cramping for weeks, with some vaginal discharge. The discharge has increased the past few days - creamy brown to dark brown.) Timing - duration: Weeks Timing - details: Gradual onset, Still present (worse the past few days) Quality: Cramping, Aching Location: RLQ, Suprapubic Radiation: No: Lower back, Right flank Improved by: No: Eating Worsened by: No: Eating, Moving, Palpation Associated symptoms: Vaginal bleeding, Vaginal dc. No: Fever, Nausea, Vomiting, Dysuria, Loss of appetite Similar symptoms before: Has not had sx before Recently seen: Other (several months post without complications, and has had couple periods since delivery.) Review of Systems Constitutional: denies: Fever, Chills, Myalgias : reports: Discharge, LMP (few weeks ago), Vaginal bleeding (dark brown). 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, Ovarian cysts : Benign prostate hypertrophy Psych: None Musculoskeletal: None - Past Surgical History Past Surgical History: Yes General: Splenectomy /ELECTRONIC SYSTEMS TECHNICIAN: section - Present Medications Home Medications: Ambulatory Orders Medication Instructions Recorded Confirmed Hydrocodone/Acetaminophen [[place] 1 each PO Q6H PRN #15 tablet 06/22/18 5-325 Tablet] Ibuprofen [Motrin] 600 mg PO TID PRN 06/22/18 06/22/18 Metronidazole [Flagyl] 500 mg PO BID #20 tablet 06/22/18 Naproxen 375 mg PO BID #20 tablet 06/22/18 - Allergies Allergies/Adverse Reactions: Allergies Allergy/AdvReac Type Severity Reaction Status Date / Time Penicillins Allergy Anaphylaxis Verified 06/22/18 16:03 - Social History Does the pt smoke?: No Smoking Status: Never smoker Does the pt drink ETOH?: No Does the pt have substance abuse?: No - Immunizations Immunizations are current?: Yes - POLST Patient has POLST: No PD ED PE NORMAL - Vitals Vital signs reviewed: Yes - General General: Alert and oriented X 3, No acute distress, Well developed/nourished - Cardiac Cardiac: RRR, No murmur - Respiratory Respiratory: Clear bilaterally - Abdomen Abdomen: Normal bowel sounds, Soft, Non distended, No organomegaly, Other (soem tender suprapubic area without guarding) - Female Female : Field Crop Grower present, Other (introitus normal. Vault with some white/brown odorous discharge. Uterus with some tenderness on motion. Some tenderness right adnexa without mass. ) - Back Back: No CVA TTP - Derm Derm: Normal color, Warm and dry Results - Vitals Vitals: Oxygen O2 Source Room air - Labs Labs: Laboratory Tests 06/22/18 16:20 Urine Color YELLOW Urine Clarity CLEAR Urine pH 6.0 Ur Specific [place] >=1.030 H Urine Protein NEGATIVE Urine Glucose (UA) NEGATIVE Urine Ketones NEGATIVE Urine Occult Blood MODERATE H Urine Nitrite NEGATIVE Urine Bilirubin NEGATIVE Urine Urobilinogen 0.2 (NORMAL) Ur Leukocyte Esterase NEGATIVE Urine RBC 6-10 H Urine WBC 4-5 Ur Squamous Epith Cells MANY Squamous H Urine Bacteria Many H Urine Mucus Few Strands Urine Yeast PRESENT Ur Microscopic Review INDICATED Urine Culture Comments NOT INDICATED Urine HCG, Qual NEGATIVE PD MEDICAL DECISION MAKING - ED course Complexity details: considered differential (has some odorous brown/white discharge. Does not appear yeast like. more likely c/w BV. ), d/w patient Departure - Departure Disposition: 01 Home, Self Care Clinical Impression: Bacterial vaginitis Condition: Stable Record reviewed to determine appropriate education?: Yes Instructions: ED Vaginosis Bacterial Follow-Up: Vianey Maki MD [Primary Care Provider] - Prescriptions: Hydrocodone/Acetaminophen [[place] 5-325 Tablet] 1 each PO Q6H PRN #15 tablet PRN Reason: Pain Metronidazole [Flagyl] 500 mg PO BID #20 tablet Naproxen 375 mg PO BID #20 tablet Comments: Drink lots of fluids. Naproxen twice daily for inflammation. Add Tylenol or hydrocodone for pain. Flagyl twice daily for a week for the apparent bacterial vaginitis. Her cultures were resulted in 2-3 days and will call if we need to amend the antibiotics. Recheck if not improved over the next several days. Discharge Date/Time: 06/22/18 18:31
[2018-06-22] MEDS ORDERED: IBUPROFEN 600 MG TABLET PO STA (18:16)
[2018-06-22] MEDS ORDERED: AZITHROMYCIN 250 MG TABLET PO STA (18:16)
[2018-06-22] MEDS ORDERED: metroNIDAZOLE 250 MG TABLET PO STA (18:16)
[2018-06-22 18:31] VITALS: BP 116/69
== END 2018-06-22 18:31 | disposition home or self-care (01) ==
LOC: ED 15:30
DX: N76.0 Acute vaginitis (principal); B96.89 Other specified bacterial agents as the cause of diseases classified elsewhere
CPT/HCPCS: 81001; 81003; 81025; 87086; 87491; 87591; 99283

== ENCOUNTER 2018-11-07 18:22 | Emergency (ER) | payer OTHER ==
[2018-11-07 18:30] VITALS: BP 127/80
--- NOTE | 2018-11-07 18:47 | ED Physician Documentation ---
History of Present Illness - Stated complaint Stated Complaint: HIGH PLATELET COUNT - Chief complaint Chief Complaint: General - History obtained from History obtained from: Patient - History of Present Illness Timing: Chronic (23-year-old woman with history of splenectomy in 2010. She had mono at the time and minor abdominal trauma and ended up having a splenectomy. Looking back at her labs she is always had high platelet counts, 4 days ago they were 623,00o and today 750,000 or so she was she was referred here for further evaluation and treatment. She complains of subacute shortness of breath with exertion and bone pain in the hips and legs that is been going on for about 3 months. She is never seen an oncologist for this.) Review of Systems Ten Systems: 10 systems reviewed and negative Constitutional: reports: Myalgias, Fatigue. 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: Endometriosis, Ovarian cysts : Benign prostate hypertrophy HEENT: None Psych: None Musculoskeletal: None - Past Surgical History Past Surgical History: Yes General: Splenectomy /SUPERVISOR ADVERTISING DISPATCH CLERKS: section - Present Medications Home Medications: Ambulatory Orders Medication Instructions Recorded Confirmed Hydrocodone/Acetaminophen [[place] 1 each PO Q6H PRN #15 tablet 06/22/18 5-325 Tablet] Metronidazole [Flagyl] 500 mg PO BID #20 tablet 06/22/18 RX: Ibuprofen [Motrin] 600 mg PO TID PRN 06/22/18 06/22/18 RX: Naproxen 375 mg PO BID #20 tablet 06/22/18 - Allergies Allergies/Adverse Reactions: Allergies Allergy/AdvReac Type Severity Reaction Status Date / Time Penicillins Allergy Anaphylaxis Verified 11/07/18 18:30 - Social History Does the pt smoke?: No Smoking Status: Never smoker Does the pt drink ETOH?: No Does the pt have substance abuse?: No - Immunizations Immunizations are current?: Yes - POLST Patient has POLST: No PD ED PE NORMAL - Vitals Vital signs reviewed: Yes - General General: Alert and oriented X 3, No acute distress - HEENT HEENT: PERRL, EOMI - Neck Neck: Supple, no meningeal sign, No bony TTP - Cardiac Cardiac: RRR, No murmur - Respiratory Respiratory: No respiratory distress, Clear bilaterally - Abdomen Abdomen: Non tender - Neuro Neuro: Alert and oriented X 3, Normal speech - Psych Psych: Normal mood, Normal affect Results - Vitals Vitals: Vital Signs - 24 hr 11/07/18 18:27 Temperature 36.1 C L Heart Rate 76 Respiratory 15 Rate Blood Pressure 127/80 O2 Saturation 98 Oxygen O2 Source Room air - Labs Labs: Laboratory Tests 11/07/18 11/07/18 11/07/18 18:56 18:56 19:00 WBC 13.4 H RBC 4.30 Hgb 13.7 Hct 40.4 MCV 94.0 MCH 31.9 H MCHC 33.9 RDW 13.9 Plt Count 683 H MPV 8.2 Neut # (Auto) 6.7 H Lymph # (Auto) 4.7 H [place] # (Auto) 1.8 H Eos # (Auto) 0.2 Baso # (Auto) 0.1 Absolute Nucleated RBC 0.00 Band Neuts % (Manual) Not Reportable Abnorm Lymph % (Manual) Not Reportable Nucleated RBC % 0.0 Neutrophils # (Manual) Not Reportable Lymphocytes # (Manual) Not Reportable Monocytes # (Manual) Not Reportable Eosinophils # (Manual) Not Reportable Basophils # (Manual) Not Reportable Differential Comment MANUAL=AUTO DIFF Manual Slide Review Indicated Platelet Estimate INCREASED (>450,000) Platelet Morphology NORMAL APPEARANCE RBC Morph Micro Appear NORMAL APPEARANCE Sodium 140 Potassium 3.8 Chloride 105 Carbon Dioxide 26 Anion Gap 9.0 BUN 8 Creatinine 0.5 Estimated GFR (MDRD) 154 Glucose 98 Calcium 9.1 Iron 57 TIBC 337 % Saturation 17 L Transferrin 241 Total Bilirubin 0.4 AST 15 ALT 14 Alkaline Phosphatase 83 Total Protein 7.2 Albumin 4.1 Globulin 3.1 Albumin/Globulin Ratio 1.3 Lipase 26 Urine Color YELLOW Urine Clarity CLEAR Urine pH 8.0 H Ur Specific [place] 1.015 Urine Protein NEGATIVE Urine Glucose (UA) NEGATIVE Urine Ketones NEGATIVE Urine Occult Blood NEGATIVE Urine Nitrite NEGATIVE Urine Bilirubin NEGATIVE Urine Urobilinogen 1 (NORMAL) Ur Leukocyte Esterase NEGATIVE Ur Microscopic Review NOT INDICATED Urine Culture Comments NOT INDICATED Urine HCG, Qual NEGATIVE PD MEDICAL DECISION MAKING - ED course ED course: 23-year-old woman 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 This is not an acute issue although it is slowly worsening. It is likely due to her prior splenectomy but she probably needs to be worked up by hand profiler/oncologist. She was so advised. Departure - Departure Disposition: 01 Home, Self Care Clinical Impression: Thrombocytosis after splenectomy Condition: Good Record reviewed to determine appropriate education?: Yes Comments: For us today her platelet count is 683,000. You need to be worked up expeditiously but not completely urgently by a hand profiler oncologist. Follow- up with your flight surgeon tomorrow to arrange for referral. Forms: Activity restrictions Discharge Date/Time: 11/07/18 19:27
[2018-11-07 19:03] LABS: BASOPHILS # (AUTO) 0.1 10^3/uL (0.0-0.1); BASOPHILS % (AUTO) 0.5 %; EOSINOPHILS # (AUTO) 0.2 10^3/uL (0.0-0.7); EOSINOPHILS % (AUTO) 1.5 %; HGB - HEMOGLOBIN 13.7 g/dL (12.0-16.0); LYMPHOCYTES # (AUTO) 4.7 10^3/uL (1.5-3.5); LYMPHOCYTES % (AUTO) 34.7 %; MEAN CORPUSCULAR HEMOGLOBIN 31.9 pg (27.0-31.0); MEAN CORPUSCULAR HGB CONC 33.9 g/dL (32.0-36.0); MEAN PLATELET VOLUME 8.2 fL (7.9-10.8); MONOCYTES # (AUTO) 1.8 10^3/uL (0.0-1.0); MONOCYTES % (AUTO) 13.1 %; NEUTROPHILS # (AUTO) 6.7 10^3/uL (1.5-6.6); NEUTROPHILS % (AUTO) 49.9 %; PLT - PLATELET COUNT 683 10^3/uL (130-450); RED CELL DISTRIBUTION WIDTH 13.9 % (12.0-15.0); WHITE BLOOD COUNT 13.4 x10^3/uL (4.8-10.8)
[2018-11-07 19:09] LABS: BILIRUBIN,URINE NEGATIVE (NEGATIVE); GLUCOSE, URINE (UA) NEGATIVE (NEGATIVE); KETONES,URINE (UA) NEGATIVE (NEGATIVE); LEUKOCYTE ESTERASE, URINE NEGATIVE (NEGATIVE); NITRITE,URINE NEGATIVE (NEGATIVE); OCCULT BLOOD,URINE NEGATIVE (NEGATIVE); PROTEIN,URINE NEGATIVE (NEGATIVE); UROBILINOGEN,URINE 1 (NORMAL) E.U./dL (NORMAL)
[2018-11-07 19:11] LABS: CLARITY,URINE CLEAR (CLEAR); HCG UR QUAL NEGATIVE
[2018-11-07 19:24] LABS: ALBUMIN 4.1 g/dL (3.2-5.5); ALBUMIN/GLOBULIN RATIO 1.3 (1.0-2.2); BILIRUBIN,TOTAL 0.4 mg/dL (0.2-1.0); CALCIUM 9.1 mg/dL (8.5-10.3); CREATININE 0.5 mg/dL (0.4-1.0); TOTAL PROTEIN 7.2 g/dL (6.7-8.2)
[2018-11-07 19:31] LABS: DIFFERENTIAL COMMENT MANUAL=AUTO DIFF; PLATELET ESTIMATE, MANUAL INCREASED (>450,000) (NORMAL); PLATELET MORPHOLOGY NORMAL APPEARANCE (NORMAL); RBC MORPHOLOGY (MULTIPLE) NORMAL APPEARANCE (NORMAL)
== END 2018-11-07 19:27 | disposition home or self-care (01) ==
LOC: ED 18:22
DX: D47.3 Essential (hemorrhagic) thrombocythemia (principal); Z90.81 Acquired absence of spleen
CPT/HCPCS: 36415; 80053; 81001; 81003; 81025; 83540; 83690; 84466; 85025; 87086; 99283; 99284

== ENCOUNTER 2018-12-04 14:32 | Emergency (ER) | payer OTHER ==
[2018-12-04 14:49] VITALS: BP 123/88
[2018-12-04 15:26] LABS: MEAN PLATELET VOLUME 8.3 fL (7.9-10.8)
[2018-12-04 15:29] LABS: BASOPHILS % (AUTO) 0.7 %; EOSINOPHILS % (AUTO) 1.3 %; HGB - HEMOGLOBIN 14.7 g/dL (12.0-16.0); LYMPHOCYTES % (AUTO) 33.8 %; MEAN CORPUSCULAR HEMOGLOBIN 31.8 pg (27.0-31.0); MEAN CORPUSCULAR HGB CONC 33.7 g/dL (32.0-36.0); MEAN CORPUSCULAR VOLUME 94.4 fL (81.0-99.0); MONOCYTES % (AUTO) 10.6 %; NEUTROPHILS % (AUTO) 53.2 %; PLT - PLATELET COUNT 699 10^3/uL (130-450); RED BLOOD COUNT 4.62 10^6/uL (4.20-5.40); RED CELL DISTRIBUTION WIDTH 14.3 % (12.0-15.0); WHITE BLOOD COUNT 13.3 x10^3/uL (4.8-10.8)
[2018-12-04 15:34] LABS: ABNORMAL LYMPHS % (MANUAL) 0 %
[2018-12-04 15:35] LABS: BILIRUBIN,URINE NEGATIVE (NEGATIVE); GLUCOSE, URINE (UA) NEGATIVE (NEGATIVE); KETONES,URINE (UA) NEGATIVE (NEGATIVE); LEUKOCYTE ESTERASE, URINE TRACE (NEGATIVE); NITRITE,URINE POSITIVE (NEGATIVE); OCCULT BLOOD,URINE NEGATIVE (NEGATIVE); PH,URINE 6.5 PH (5.0-7.5); PROTEIN,URINE NEGATIVE (NEGATIVE); UROBILINOGEN,URINE 0.2 (NORMAL) E.U./dL (NORMAL)
[2018-12-04 15:38] LABS: CLARITY,URINE CLOUDY (CLEAR); HCG UR QUAL NEGATIVE
[2018-12-04 15:44] LABS: RBC,URINE 0-5 /HPF (0-5); SQUAMOUS EPITHELIAL CELL,UR MANY Squamous (<= Few)
[2018-12-04 15:45] LABS: BACTERIA,URINE Many /HPF (None Seen)
[2018-12-04 15:48] LABS: BAND NEUTROPHILS % (MANUAL) 1 %; BASOPHILS # (MANUAL) 0.1 10^3/uL (0-0.1); BASOPHILS % (MANUAL) 1 %; DIFFERENTIAL COMMENT MANUAL DIFFERENTIAL; EOSINOPHILS # (MANUAL) 0.1 10^3/uL (0-0.7); LYMPHOCYTES # (MANUAL) 5.7 10^3/uL (1.5-3.5); LYMPHOCYTES % (MANUAL) 43 %; MONOCYTES # (MANUAL) 1.2 10^3/uL (0.0-1.0); PLATELET ESTIMATE, MANUAL INCREASED (>450,000) (NORMAL); PLATELET MORPHOLOGY NORMAL APPEARANCE (NORMAL); RBC MORPHOLOGY (MULTIPLE) NORMAL APPEARANCE (NORMAL)
[2018-12-04 15:54] LABS: ALBUMIN 4.2 g/dL (3.2-5.5); ALBUMIN/GLOBULIN RATIO 1.2 (1.0-2.2); ALKALINE PHOSPHATASE 83 IU/L (42-121); ALT ALANINE AMINOTRANSFERASE 13 IU/L (10-60); AST ASPARTATE AMINOTRANSFERASE 14 IU/L (10-42); BILIRUBIN,TOTAL 0.4 mg/dL (0.2-1.0); BUN - BLOOD UREA NITROGEN 10 mg/dL (6-20); CALCIUM 9.7 mg/dL (8.5-10.3); CARBON DIOXIDE - CO2 28 mmol/L (21-32); CHLORIDE 104 mmol/L (101-111); CREATININE 0.5 mg/dL (0.4-1.0); GFR - MDRD 154 (>89); GLUCOSE 96 mg/dL (70-100); LIPASE 28 U/L (22-51); SODIUM 139 mmol/L (135-145); TOTAL PROTEIN 7.6 g/dL (6.7-8.2)
[2018-12-04 16:54] LABS: CRP - C-REACTIVE PROTEIN < 1.0 mg/dL (0-1.0)
[2018-12-04] MEDS ORDERED: NITROFURANTOIN MACRO 100 MG CAPSULE PO STA (18:32)
[2018-12-04] MEDS ORDERED: traMADol 50 MG TABLET PO STA (18:32)
--- NOTE | 2018-12-04 18:36 | ED Physician Documentation ---
History of Present Illness - Stated complaint Stated Complaint: BACK/KNEE/ANKLE PX SENT BY MAC - Chief complaint Chief Complaint: General - History obtained from History obtained from: Patient - History of Present Illness Pain level max: 9 Pain level now: 9 Improved by: nothing Worsened by: moving - Additonal information Additional information: 23-year-old female presents to the emergency department stating for the past several months she has had aching in her joints, elbows, wrists, knees, ankles. Also had back pain. States is been worsening over the past few weeks. She is seeing hematology for thrombocythemia. She is supposed to undergo a bone marrow biopsy but has not scheduled this yet. No fevers. Has not had a rheumatological work-up. No rashes. She states Motrin and Tylenol is not helping. She does not use IV drugs. No numbness or tingling. No loss of bowel or bladder control. No neurological deficits. 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: Endometriosis, Ovarian cysts : Benign prostate hypertrophy HEENT: None Psych: None Musculoskeletal: None - Past Surgical History Past Surgical History: Yes General: Splenectomy /BOG CUTTER: section - Present Medications Home Medications: Ambulatory Orders Medication Instructions Recorded Confirmed Hydrocodone/Acetaminophen [[place] 1 each PO Q6H PRN #15 tablet 06/22/18 5-325 Tablet] Ibuprofen [Motrin] 600 mg PO TID PRN 06/22/18 06/22/18 Metronidazole [Flagyl] 500 mg PO BID #20 tablet 06/22/18 Naproxen 375 mg PO BID #20 tablet 06/22/18 Nitrofurantoin Monohyd/M-Cryst 100 mg PO BID #10 capsule 12/04/18 [Macrobid 100 mg Capsule] Tramadol HCl 50 - 100 mg PO Q6H PRN #20 tablet 12/04/18 - Allergies Allergies/Adverse Reactions: Allergies Allergy/AdvReac Type Severity Reaction Status Date / Time Penicillins Allergy Anaphylaxis Verified 11/07/18 18:30 - Social History Does the pt smoke?: No Smoking Status: Never smoker Does the pt drink ETOH?: No Does the pt have substance abuse?: No - Immunizations Immunizations are current?: Yes - POLST Patient has POLST: No PD ED PE NORMAL - Vitals Vital signs reviewed: Yes - General General: Alert and oriented X 3, No acute distress, Well developed/nourished - HEENT HEENT: PERRL, Moist mucous membranes - Neck Neck: Supple, no meningeal sign, No bony TTP - Cardiac Cardiac: RRR - Respiratory Respiratory: No respiratory distress, Clear bilaterally - Abdomen Abdomen: Soft, Non tender, Non distended - Back Back: No spinal TTP (No midline tenderness palpation. No step-off or deformity.) - Derm Derm: Warm and dry - Extremities Extremities: Other (Normal bilateral lower extremity patellar and ankle jerk reflexes. Normal great toe extension bilaterally. 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, No motor deficit, No sensory deficit - Psych Psych: Normal mood, Normal affect Results - Vitals Vitals: Vital Signs - 24 hr 12/04/18 14:47 Temperature 36.4 C L Heart Rate 78 Respiratory 18 Rate Blood Pressure 123/88 H O2 Saturation 99 Oxygen O2 Source Room air - Labs Labs: Laboratory Tests 12/04/18 12/04/18 12/04/18 15:09 15:09 15:09 WBC 13.3 H RBC 4.62 Hgb 14.7 Hct 43.6 MCV 94.4 MCH 31.8 H MCHC 33.7 RDW 14.3 Plt Count 699 H MPV 8.3 Neut # (Auto) Not Reportable Lymph # (Auto) Not Reportable [place] # (Auto) Not Reportable Eos # (Auto) Not Reportable Baso # (Auto) Not Reportable Absolute Nucleated RBC Not Reportable Total Counted 100 Band Neuts % (Manual) 1 Abnorm Lymph % (Manual) 0 Nucleated RBC % Not Reportable Neutrophils # (Manual) 6.1 Lymphocytes # (Manual) 5.7 H Monocytes # (Manual) 1.2 H Eosinophils # (Manual) 0.1 Basophils # (Manual) 0.1 Differential Comment MANUAL DIFFERENTIAL Manual Slide Review Indicated WBC Morphology NORMAL APPEARANCE Platelet Estimate INCREASED (>450,000) Platelet Morphology NORMAL APPEARANCE RBC Morph Micro Appear NORMAL APPEARANCE ESR 9 Sodium 139 Potassium 3.8 Chloride 104 Carbon Dioxide 28 Anion Gap 7.0 BUN 10 Creatinine 0.5 Estimated GFR (MDRD) 154 Glucose 96 Calcium 9.7 Total Bilirubin 0.4 AST 14 ALT 13 Alkaline Phosphatase 83 C-Reactive Protein < 1.0 Total Protein 7.6 Albumin 4.2 Globulin 3.4 Albumin/Globulin Ratio 1.2 Lipase 28 Urine Color Urine Clarity Urine pH Ur Specific [place] Urine Protein Urine Glucose (UA) Urine Ketones Urine Occult Blood Urine Nitrite Urine Bilirubin Urine Urobilinogen Ur Leukocyte Esterase Urine RBC Urine WBC Ur Squamous Epith Cells Urine Bacteria Ur Microscopic Review Urine Culture Comments Urine HCG, Qual 12/04/18 15:25 WBC RBC Hgb Hct MCV MCH MCHC RDW Plt Count MPV Neut # (Auto) Lymph # (Auto) [place] # (Auto) Eos # (Auto) Baso # (Auto) Absolute Nucleated RBC Total Counted Band Neuts % (Manual) Abnorm Lymph % (Manual) Nucleated RBC % Neutrophils # (Manual) Lymphocytes # (Manual) Monocytes # (Manual) Eosinophils # (Manual) Basophils # (Manual) Differential Comment Manual Slide Review WBC Morphology Platelet Estimate Platelet Morphology RBC Morph Micro Appear ESR Sodium Potassium Chloride Carbon Dioxide Anion Gap BUN Creatinine Estimated GFR (MDRD) Glucose Calcium Total Bilirubin AST ALT Alkaline Phosphatase C-Reactive Protein Total Protein Albumin Globulin Albumin/Globulin Ratio Lipase Urine Color YELLOW Urine Clarity CLOUDY Urine pH 6.5 Ur Specific [place] 1.020 Urine Protein NEGATIVE Urine Glucose (UA) NEGATIVE Urine Ketones NEGATIVE Urine Occult Blood NEGATIVE Urine Nitrite POSITIVE H Urine Bilirubin NEGATIVE Urine Urobilinogen 0.2 (NORMAL) Ur Leukocyte Esterase TRACE H Urine RBC 0-5 Urine WBC 6-10 H Ur Squamous Epith Cells MANY Squamous H Urine Bacteria Many H Ur Microscopic Review INDICATED Urine Culture Comments NOT INDICATED Urine HCG, Qual NEGATIVE PD MEDICAL DECISION MAKING - ED course Complexity details: reviewed results, re-evaluated patient, considered differential, d/w patient ED course: Patient with arthralgias of unclear etiology. Her leukocytosis is stable from prior. CRP and sed rate is negative. No bony tenderness. No neurological deficits. Discussed the case with her tour guide and he agrees with a rheumatological work-up with her doctor. Patient is well-appearing, nontoxic. No acute emergency medical condition at this time. Patient counseled regarding signs and symptoms for which I believe and urgent re-evaluation would be necessary. Patient with good understanding of and agreement to plan and is comfortable going home at this time This document was made in part using voice recognition software. While efforts are made to proofread this document, sound alike and grammatical errors may occur. Departure - Departure Disposition: Home, Self Care Clinical Impression: Arthralgia Qualifiers: Joint pain location: unspecified Qualified Code(s): M25.50 - Pain in unspecified joint Condition: Good Instructions: ED Joint Pain Follow-Up: ANIYAH SINCLAIR MD [Provider Admit Priv/Credential] - BEVERLY TORRES MD [Primary Care Provider] - Within 1 week Prescriptions: Nitrofurantoin Monohyd/M-Cryst [Macrobid 100 mg Capsule] 100 mg PO BID #10 capsule Tramadol HCl 50 - 100 mg PO Q6H PRN #20 tablet PRN Reason: pain Comments: We will try on tramadol for home. Take all antibiotics until gone. I spoke with Dr. Sinclair today. We agree that you should have a rheumatological work-up done with your primary care doctor. This would likely include KEON and rheumatoid factor testing. Your CRP and sed rate are negative today. Do not drink alcohol or drive while on narcotic pain medicine. Note that many narcotic pain relievers also contain tylenol/acetaminophen. Please ensure that your total dose of acetaminophen from all sources does not exceed 3 grams (3000mg) per day. You may constipated on this medication, take a stool softener such as "Colace" twice a day while you are on it. Also recommend a tzck-xne-voabvle laxative such as senna or MiraLAX any day that you do not have a bowel movement. If you received narcotic pain medication in the emergency department, do not drive or operate machinery for the next 24 hours. Discharge Date/Time: 12/04/18 18:45
== END 2018-12-04 18:45 | disposition home or self-care (01) ==
LOC: ED 14:32
DX: M54.9 Dorsalgia, unspecified (principal); M25.561 Pain in right knee; M25.562 Pain in left knee; M25.572 Pain in left ankle and joints of left foot; M25.571 Pain in right ankle and joints of right foot; M25.522 Pain in left elbow; M25.521 Pain in right elbow; M25.532 Pain in left wrist; M25.531 Pain in right wrist
CPT/HCPCS: 36415; 80053; 81001; 81025; 83690; 85025; 85651; 86140; 99283; 99284; A9270; 81003; 87086

== ENCOUNTER 2018-12-12 20:51 | Emergency (ER) | payer OTHER ==
[2018-12-12 20:59] VITALS: BP 122/69
--- NOTE | 2018-12-12 21:18 | ED Physician Documentation ---
History of Present Illness - Stated complaint Stated Complaint: REQUEST TEST - Chief complaint Chief Complaint: General - History obtained from History obtained from: Patient - Additonal information Additional information: Patient had a positive test in the morning and then retested it the following evening and it was negative. She is requesting a blood test. Her last menstrual. Was 17 November. She had some very slight vaginal bleeding and lower pelvic cramping. She is 3 para 2 and her ID shows her blood type as O+. 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: Endometriosis : None HEENT: None Psych: None Musculoskeletal: None Derm: None - Past Surgical History Past Surgical History: Yes General: Splenectomy /CONTACT LENS EDGE BUFFER: section - Present Medications Home Medications: Ambulatory Orders Medication Instructions Recorded Confirmed No Known Home Medications 12/12/18 12/12/18 - Allergies Allergies/Adverse Reactions: Allergies Allergy/AdvReac Type Severity Reaction Status Date / Time Penicillins Allergy Anaphylaxis Verified 12/12/18 20:59 - Social History Does the pt smoke?: No Smoking Status: Never smoker Does the pt drink ETOH?: No Does the pt have substance abuse?: No - Immunizations Immunizations are current?: Yes - POLST Patient has POLST: No PD ED PE NORMAL - Vitals Vital signs reviewed: Yes - General General: Alert and oriented X 3, No acute distress, Well developed/nourished - Cardiac Cardiac: RRR, No murmur - Abdomen Abdomen: Normal bowel sounds, Soft, Non tender - Derm Derm: Normal color, Warm and dry - Neuro Neuro: Alert and oriented X 3, Other (No gross neurological deficits.) Results - Vitals Vitals: Vital Signs - 24 hr 12/12/18 20:55 Temperature 36.8 C Heart Rate 70 Respiratory 18 Rate Blood Pressure 122/69 O2 Saturation 97 Oxygen O2 Source Room air - Labs Labs: Laboratory Tests 12/12/18 12/12/18 21:15 21:43 Serum HCG, Qual NEGATIVE Ur Specific [place] 1.015 Urine HCG, Qual NEGATIVE PD MEDICAL DECISION MAKING - ED course Complexity details: reviewed results, d/w patient ED course: Urine test was negative and a qualitative hCG was ordered and it was negative. This is discussed with the patient. [facility] Departure - Departure Disposition: 01 Home, Self Care Clinical Impression: Vaginal bleeding Condition: Good Follow-Up: LIVIER Garcia [Provider Group] Comments: [facility].
[2018-12-12 21:26] LABS: HCG UR QUAL NEGATIVE
[2018-12-12 22:14] LABS: HCG,QUALITATIVE BLOOD NEGATIVE
== END 2018-12-12 22:25 | disposition home or self-care (01) ==
LOC: ED 20:51
DX: N93.9 Abnormal uterine and vaginal bleeding, unspecified (principal); R10.2 Pelvic and perineal pain; Z32.02 Encounter for pregnancy test, result negative
CPT/HCPCS: 81025; 84703; 99281; 99283

== ENCOUNTER 2018-12-24 16:36 | Emergency (ER) | payer OTHER ==
[2018-12-24 16:44] VITALS: BP 121/65
--- NOTE | 2018-12-24 16:50 | ED Physician Documentation ---
PD HPI FEMALE - Stated complaint Stated Complaint: - Chief complaint Chief Complaint: General - History obtained from History obtained from: Patient - History of Present Illness Timing - onset: How many days ago (She had a home test positive, and needs to have it confirmed according to Hematology office, since she is having a bone biopsy biopsy done tomorrow and had been unable to get it done over the weekend at her primary care. She is not having any pelivc pain nor bleeding. Has some mild nausea.) Timing - duration: Days (preg test positive at home couple of days ago.) Associated symptoms: No: Fever, Vaginal pain, Vaginal bleeding, Dysuria Contributing factors: (home test positive 2 days ago. Had had a negative preg test on the 8th (2 weeks ago). Presume early .) Recently seen: Emergency Dept (12 days ago for some nausea and concern of early , had had positive home test the week prior at that time. Tests serum and urine were negative on 12/12/18) Review of Systems Constitutional: denies: Fever, Chills GI: denies: Abdominal Pain : reports: Missed period (LMP was 5 weeks ago). 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 : None HEENT: None Psych: None Musculoskeletal: None Derm: None - Past Surgical History Past Surgical History: Yes General: Splenectomy /CHRISTIAN MINISTRIES PROFESSOR: section - Present Medications Home Medications: Ambulatory Orders Medication Instructions Recorded Confirmed No Known Home Medications 12/12/18 12/12/18 - Allergies Allergies/Adverse Reactions: Allergies Allergy/AdvReac Type Severity Reaction Status Date / Time Penicillins Allergy Anaphylaxis Verified 12/24/18 16:44 - Social History Does the pt smoke?: No Smoking Status: Never smoker Does the pt drink ETOH?: No Does the pt have substance abuse?: No - Immunizations Immunizations are current?: Yes - POLST Patient has POLST: No PD ED PE NORMAL - Vitals Vital signs reviewed: Yes - General General: Alert and oriented X 3, No acute distress, Well developed/nourished - Abdomen Abdomen: Soft, Non tender - Female Female : Deferred - Rectal Rectal: Deferred - Back Back: No CVA TTP - Derm Derm: Normal color, Warm and dry Results - Vitals Vitals: Vital Signs - 24 hr 12/24/18 16:42 Temperature 37.1 C Heart Rate 81 Respiratory 18 Rate Blood Pressure 121/65 O2 Saturation 96 Oxygen O2 Source Room air - Labs Labs: Laboratory Tests 12/24/18 12/24/18 12/24/18 16:55 17:10 17:10 WBC 14.0 H RBC 4.43 Hgb 14.0 Hct 41.8 MCV 94.4 MCH 31.6 H MCHC 33.5 RDW 14.2 Plt Count 564 H MPV 8.2 Neut # (Auto) 7.9 H Lymph # (Auto) 4.4 H [place] # (Auto) 1.4 H Eos # (Auto) 0.2 Baso # (Auto) 0.1 Absolute Nucleated RBC 0.00 Nucleated RBC % 0.0 HCG, Quant 41.25 Ur Specific [place] 1.020 Urine HCG, Qual POSITIVE PD MEDICAL DECISION MAKING - ED course Complexity details: considered differential (Your test is positive so ordered a quantitative which valued at 41 suggesting very early . She is not having any vaginal bleeding or pelvic pain and her quantitative would be too low to establish location by ultrasound. I feel she is safe for discharge.), d/w patient Departure - Departure Disposition: 01 Home, Self Care Clinical Impression: Early stage of Condition: Stable Record reviewed to determine appropriate education?: Yes Instructions: ED Preg Established Normal Sxs Follow-Up: Vianey Maki MD [Primary Care Provider] - Comments: Your test is positive with a low quantitative blood level, suggesting very early . This number can be rechecked by your primary care in a week or so to verify normal progression. Otherwise start vitamin, and stay well hydrated. I printed the lab results for you to bring to the specialist on Tuesday, if they need to refer to it.
[2018-12-24 17:03] LABS: HCG UR QUAL POSITIVE
[2018-12-24 17:23] LABS: BASOPHILS # (AUTO) 0.1 10^3/uL (0.0-0.1); BASOPHILS % (AUTO) 0.6 %; EOSINOPHILS # (AUTO) 0.2 10^3/uL (0.0-0.7); EOSINOPHILS % (AUTO) 1.1 %; LYMPHOCYTES # (AUTO) 4.4 10^3/uL (1.5-3.5); LYMPHOCYTES % (AUTO) 31.3 %; MEAN CORPUSCULAR HEMOGLOBIN 31.6 pg (27.0-31.0); MEAN CORPUSCULAR HGB CONC 33.5 g/dL (32.0-36.0); MEAN CORPUSCULAR VOLUME 94.4 fL (81.0-99.0); MEAN PLATELET VOLUME 8.2 fL (7.9-10.8); MONOCYTES # (AUTO) 1.4 10^3/uL (0.0-1.0); MONOCYTES % (AUTO) 9.9 %; NEUTROPHILS # (AUTO) 7.9 10^3/uL (1.5-6.6); NEUTROPHILS % (AUTO) 56.7 %; PLT - PLATELET COUNT 564 10^3/uL (130-450); RED BLOOD COUNT 4.43 10^6/uL (4.20-5.40); RED CELL DISTRIBUTION WIDTH 14.2 % (12.0-15.0)
== END 2018-12-24 18:03 | disposition home or self-care (01) ==
LOC: ED 16:36
DX: Z32.01 Encounter for pregnancy test, result positive (principal)
CPT/HCPCS: 36415; 81025; 84702; 84703; 85025; 99282; 99283

== ENCOUNTER 2019-01-09 22:53 | Emergency (ER) | payer OTHER ==
[2019-01-09 23:12] LABS: BILIRUBIN,URINE NEGATIVE (NEGATIVE); GLUCOSE, URINE (UA) NEGATIVE (NEGATIVE); KETONES,URINE (UA) NEGATIVE (NEGATIVE); LEUKOCYTE ESTERASE, URINE NEGATIVE (NEGATIVE); NITRITE,URINE POSITIVE (NEGATIVE); OCCULT BLOOD,URINE NEGATIVE (NEGATIVE); PROTEIN,URINE NEGATIVE (NEGATIVE); UROBILINOGEN,URINE 1 (NORMAL) E.U./dL (NORMAL)
[2019-01-09 23:14] LABS: CLARITY,URINE HAZY (CLEAR)
--- NOTE | 2019-01-09 23:15 | ED Physician Documentation ---
PD HPI FEMALE - Stated complaint Stated Complaint: ABD PAIN - Chief complaint Chief Complaint: Abd Pain - History obtained from History obtained from: Patient - History of Present Illness Timing - onset: How many weeks ago (1) Timing - details: Gradual onset, Constant, Waxing and waning Pain level max: 3 Associated symptoms: Pelvic pain (right). 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 has intake appointment with psychologist engineering tomorrow. she is approximately 7 weeks . 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 : None HEENT: None Psych: None Musculoskeletal: None Derm: None - Past Surgical History Past Surgical History: Yes General: Splenectomy /BALL RACKER: section - Present Medications Home Medications: Ambulatory Orders Medication Instructions Recorded Confirmed No Known Home Medications 12/12/18 12/12/18 - Allergies Allergies/Adverse Reactions: Allergies Allergy/AdvReac Type Severity Reaction Status Date / Time Penicillins Allergy Anaphylaxis Verified 01/09/19 23:05 - Social History Does the pt smoke?: No Smoking Status: Never smoker Does the pt drink ETOH?: No Does the pt have substance abuse?: No - Immunizations Immunizations are current?: Yes - POLST Patient has POLST: No PD ED PE NORMAL - Vitals Vital signs reviewed: Yes - General General: Alert and oriented X 3, No acute distress, Well developed/nourished - Cardiac Cardiac: RRR, No murmur - Respiratory Respiratory: No respiratory distress, Clear bilaterally - Abdomen Abdomen: Soft, Non tender, Non distended - Back Back: No CVA TTP Results - Vitals Vitals: Oxygen O2 Source Room air - Labs Labs: Microbiology 01/09/19 23:00 Urine Culture - Preliminary Urine,Clean Catch CULTURE IN PROGRESS. RESULTS TO FOLLOW. Laboratory Tests 01/09/19 01/09/19 23:00 23:25 HCG, Quant [id number] Urine Color YELLOW Urine Clarity HAZY Urine pH 7.0 Ur Specific [place] 1.020 Urine Protein NEGATIVE Urine Glucose (UA) NEGATIVE Urine Ketones NEGATIVE Urine Occult Blood NEGATIVE Urine Nitrite POSITIVE H Urine Bilirubin NEGATIVE Urine Urobilinogen 1 (NORMAL) Ur Leukocyte Esterase NEGATIVE Urine RBC 0-5 Urine WBC 0-3 Ur Squamous Epith Cells FEW Squamous Urine Bacteria Many H Ur Microscopic Review INDICATED Urine Culture Comments INDICATED - Rads (name of study) pelvic US Radiology: Prelim report reviewed, See rad report PD MEDICAL DECISION MAKING - ED course Complexity details: reviewed results, re-evaluated patient, considered differential, d/w patient Departure - Departure Disposition: 01 Home, Self Care Clinical Impression: Pelvic pain during Condition: Good Instructions: ED Abdominal Pain Rule Out Ectopic, ED Pelvic Pain UKO Follow-Up: Vianey aMki MD [Primary Care Provider] - Forms: Activity restrictions Discharge Date/Time: 01/10/19 02:24
[2019-01-09 23:17] LABS: BACTERIA,URINE Many /HPF (None Seen); RBC,URINE 0-5 /HPF (0-5); SQUAMOUS EPITHELIAL CELL,UR FEW Squamous (<= Few)
--- NOTE | 2019-01-10 01:28 | Ultrasound Report ---
Reason: right pelvic pain, Procedure Date: 01/10/2019 Accession Number: [id number] / [id number] Procedure: US - OB First Trimester CPT Code: Final Report FULL RESULT: EXAM: FIRST TRIMESTER OBSTETRIC ULTRASOUND (LESS THAN 11 WEEKS). EXAM DATE: 01/10/2019 12:36 AM. CLINICAL HISTORY: Right pelvic pain, . Right-sided pelvic pain for 1 week. LMP: Unknown. COMPARISONS: OB FIRST TRIMESTER 05/09/2017 9:12 PM. TECHNIQUE: Transabdominal and transvaginal ultrasound examination with static image documentation. FINDINGS: Established due date: 08/26/2019. Estimated gestational age: 7 weeks 2 days. Gestational Sac: Single intrauterine. Mean gestational sac diameter: 13.2 mm = 6 weeks 1 day. Embryo: CRL (crown-rump length) 3.4 mm = 6 weeks 0 days. Cardiac activity: 111 beats per minute. Yolk sac: 2.5 mm. Amniotic fluid: Not accurately assessed at this gestational age. Early placenta: Not visible at this gestational age. Other: No perigestational fluid collection demonstrated. MATERNAL STRUCTURES: Uterus: Anteverted/Retroverted. Unremarkable. Cervix: Closed. Right Ovary/Adnexa: Normal appearance of the right ovary measuring 3.0 x 1.9 x 2.2 cm. There is a 1.5 cm corpus luteum cyst. Normal blood flow. Left Ovary/Adnexa: Normal appearance of the left ovary measuring 2.1 x 3.2 x 2.1 cm. Small corpus luteum cyst suspected measuring 11 mm. There is normal blood flow. Free Fluid: None. Other: None. IMPRESSION: 1. Single viable intrauterine gestation measuring 6 weeks 0 days with a due date of 09/04/2019. This is discordant with prior established due date. 2. No suspicious adnexal abnormality. No significant pelvic free fluid. RADIA
--- NOTE | 2019-01-10 01:28 | Ultrasound Report ---
Reason: right pelvic pain, Procedure Date: 01/10/2019 Accession Number: [id number] / [id number] Procedure: US - OB Transvaginal CPT Code: Final Report FULL RESULT: EXAM: FIRST TRIMESTER OBSTETRIC ULTRASOUND (LESS THAN 11 WEEKS). EXAM DATE: 01/10/2019 12:36 AM. CLINICAL HISTORY: Right pelvic pain, . Right-sided pelvic pain for 1 week. LMP: Unknown. COMPARISONS: OB FIRST TRIMESTER 05/09/2017 9:12 PM. TECHNIQUE: Transabdominal and transvaginal ultrasound examination with static image documentation. FINDINGS: Established due date: 08/26/2019. Estimated gestational age: 7 weeks 2 days. Gestational Sac: Single intrauterine. Mean gestational sac diameter: 13.2 mm = 6 weeks 1 day. Embryo: CRL (crown-rump length) 3.4 mm = 6 weeks 0 days. Cardiac activity: 111 beats per minute. Yolk sac: 2.5 mm. Amniotic fluid: Not accurately assessed at this gestational age. Early placenta: Not visible at this gestational age. Other: No perigestational fluid collection demonstrated. MATERNAL STRUCTURES: Uterus: Anteverted/Retroverted. Unremarkable. Cervix: Closed. Right Ovary/Adnexa: Normal appearance of the right ovary measuring 3.0 x 1.9 x 2.2 cm. There is a 1.5 cm corpus luteum cyst. Normal blood flow. Left Ovary/Adnexa: Normal appearance of the left ovary measuring 2.1 x 3.2 x 2.1 cm. Small corpus luteum cyst suspected measuring 11 mm. There is normal blood flow. Free Fluid: None. Other: None. IMPRESSION: 1. Single viable intrauterine gestation measuring 6 weeks 0 days with a due date of 09/04/2019. This is discordant with prior established due date. 2. No suspicious adnexal abnormality. No significant pelvic free fluid. RADIA
[2019-01-10 02:05] VITALS: BP 108/63
== END 2019-01-10 02:24 | disposition home or self-care (01) ==
LOC: ED 22:53
DX: O26.891 Other specified pregnancy related conditions, first trimester (principal); R10.2 Pelvic and perineal pain; Z3A.01 Less than 8 weeks gestation of pregnancy
CPT/HCPCS: 76801; 76817; 81001; 81003; 84702; 87077; 87086; 87181; 99282; 99284

== ENCOUNTER 2019-03-16 16:13 | Emergency (ER) | payer OTHER ==
[2019-03-16 17:05] LABS: BASOPHILS # (AUTO) 0.1 10^3/uL (0.0-0.1); BASOPHILS % (AUTO) 0.4 %; EOSINOPHILS # (AUTO) 0.1 10^3/uL (0.0-0.7); EOSINOPHILS % (AUTO) 0.6 %; HGB - HEMOGLOBIN 13.7 g/dL (12.0-16.0); LYMPHOCYTES % (AUTO) 25.2 %; MEAN CORPUSCULAR HEMOGLOBIN 32.6 pg (27.0-31.0); MEAN CORPUSCULAR HGB CONC 33.8 g/dL (32.0-36.0); MEAN CORPUSCULAR VOLUME 96.4 fL (81.0-99.0); MEAN PLATELET VOLUME 8.2 fL (7.9-10.8); MONOCYTES # (AUTO) 1.6 10^3/uL (0.0-1.0); MONOCYTES % (AUTO) 10.1 %; NEUTROPHILS # (AUTO) 9.9 10^3/uL (1.5-6.6); NEUTROPHILS % (AUTO) 63.2 %; PLT - PLATELET COUNT 576 10^3/uL (130-450); RED CELL DISTRIBUTION WIDTH 14.4 % (12.0-15.0); WHITE BLOOD COUNT 15.7 x10^3/uL (4.8-10.8)
--- NOTE | 2019-03-16 17:20 | ED Physician Documentation ---
History of Present Illness - Stated complaint Stated Complaint: HIP & KNEE PX - Chief complaint Chief Complaint: General - History obtained from History obtained from: Patient - History of Present Illness Timing: How many weeks ago (several) Pain level max: 7 Pain level now: 7 - Additonal information Additional information: Patient with chronic back and hip pain. She states that is been worsening since she has been . Saw her OB who told her to come here for pain control. Worse with movement and better with rest. She sees hematology for thrombocythemia. Review of Systems Constitutional: denies: Fever, Chills Ears: denies: Ear pain Nose: denies: Rhinorrhea / runny nose, Congestion GI: denies: Vomiting, Diarrhea : reports: Now EGA (16 weeks). denies: Dysuria, Frequency, Hesitancy, Incontinent, Hematuria, Discharge, Vaginal bleeding Skin: denies: Rash Musculoskeletal: denies: Neck pain, Back pain Neurologic: denies: Headache PD PAST MEDICAL HISTORY - Past Medical History Cardiovascular: None Respiratory: None Neuro: None Endocrine/Autoimmune: None GI: None CARDIOVASCULAR SURGEON: Endometriosis : None HEENT: None Psych: None Musculoskeletal: None Derm: None - Past Surgical History Past Surgical History: Yes General: Splenectomy /CARDIOVASCULAR SURGEON: section - Present Medications Home Medications: Ambulatory Orders Medication Instructions Recorded Confirmed Ferrous Gluconate [Iron] 03/16/19 Oxycodone HCl 5 mg PO Q6H PRN #10 tablet 03/16/19 Pnv No.95/Ferrous Fum/Folic AC 03/16/19 [ Caplet] - Allergies Allergies/Adverse Reactions: Allergies Allergy/AdvReac Type Severity Reaction Status Date / Time Penicillins Allergy Anaphylaxis Verified 03/16/19 16:41 - Social History Does the pt smoke?: No Smoking Status: Never smoker Does the pt drink ETOH?: No Does the pt have substance abuse?: No - Immunizations Immunizations are current?: Yes - POLST Patient has POLST: No PD ED PE NORMAL - Vitals Vital signs reviewed: Yes - General General: Alert and oriented X 3, No acute distress, Well developed/nourished - HEENT HEENT: Moist mucous membranes - Neck Neck: Supple, no meningeal sign - Cardiac Cardiac: RRR, Strong equal pulses - Respiratory Respiratory: No respiratory distress, Clear bilaterally - Abdomen Abdomen: Soft, Non tender, Non distended - Derm Derm: Warm and dry, No rash - Extremities Extremities: No deformity, No edema - Neuro Neuro: Alert and oriented X 3 - Psych Psych: Normal mood, Normal affect Results - Vitals Vitals: Vital Signs - 24 hr 03/16/19 03/16/19 16:38 17:55 Temperature 36.7 C 36.9 C Heart Rate 84 81 Respiratory 16 16 Rate Blood Pressure 105/64 106/60 O2 Saturation 96 98 Oxygen O2 Source Room air - Labs Labs: Laboratory Tests 03/16/19 03/16/19 17:00 17:00 WBC 15.7 H RBC 4.20 Hgb 13.7 Hct 40.5 MCV 96.4 MCH 32.6 H MCHC 33.8 RDW 14.4 Plt Count 576 H MPV 8.2 Neut # (Auto) 9.9 H Lymph # (Auto) 4.0 H Wagoner # (Auto) 1.6 H Eos # (Auto) 0.1 Baso # (Auto) 0.1 Absolute Nucleated RBC 0.00 Nucleated RBC % 0.0 Sodium 134 L Potassium 3.7 Chloride 105 Carbon Dioxide 21 Anion Gap 8.0 BUN 5 L Creatinine 0.3 L Estimated GFR (MDRD) 278 Glucose 92 Calcium 8.8 Total Bilirubin 0.5 AST 13 ALT 12 Alkaline Phosphatase 53 Total Protein 6.7 Albumin 3.4 Globulin 3.3 Albumin/Globulin Ratio 1.0 Lipase 25 PD MEDICAL DECISION MAKING - ED course Complexity details: reviewed results, re-evaluated patient, considered differential, d/w patient ED course: I attempted to contact her managing member, [facility] [employer] [facility] states that they no longer have any obstetricians on-call as their labor and delivery is closed. We will prescribe her a small amount of pain medication for home. She is well- appearing, nontoxic. Afebrile. No significant lab abnormalities at this time. Patient counseled regarding signs and symptoms for which I believe and urgent re-evaluation would be necessary. Patient with good understanding of and agreement to plan and is comfortable going home at this time This document was made in part using voice recognition software. While efforts are made to proofread this document, sound alike and grammatical errors may occur. Departure - Departure Disposition: 01 Home, Self Care Clinical Impression: Arthralgia Qualifiers: Joint pain location: unspecified Qualified Code(s): M25.50 - Pain in unspecified joint Condition: Good Instructions: ED Acute Pain [facility] Follow-Up: BEVERLY TORRES MD [Primary Care Provider] - Joseph Orourke MD [Physician No Access] - Within 1 week Prescriptions: Oxycodone HCl 5 mg PO Q6H PRN #10 tablet PRN Reason: pain Comments: Return if you worsen. Follow up with your doctor for further care. Do not drink alcohol or drive while on narcotic pain medicine. Note that many narcotic pain relievers also contain tylenol/acetaminophen. Please ensure that your total dose of acetaminophen from all sources does not exceed 3 grams (3000mg) per day. You may constipated on this medication, take a stool softener such as "Colace" twice a day while you are on it. Also recommend a [id number]-kpt-sjdeebc laxative such as senna or MiraLAX any day that you do not have a bowel movement. If you received narcotic pain medication in the emergency department, do not drive or operate machinery for the next 24 hours. Discharge Date/Time: 03/16/19 17:55
[2019-03-16 17:23] LABS: ALBUMIN 3.4 g/dL (3.2-5.5); BILIRUBIN,TOTAL 0.5 mg/dL (0.2-1.0); CALCIUM 8.8 mg/dL (8.5-10.3); CREATININE 0.3 mg/dL (0.4-1.0); TOTAL PROTEIN 6.7 g/dL (6.7-8.2)
[2019-03-16] MEDS: oxyCODONE 5 MG TABLET PO STA (17:46)
[2019-03-16 17:56] VITALS: BP 106/60
== END 2019-03-16 17:55 | disposition home or self-care (01) ==
LOC: ED 16:13
DX: O99.89 Other specified diseases and conditions complicating pregnancy, childbirth and the puerperium (principal); M54.9 Dorsalgia, unspecified; M25.559 Pain in unspecified hip; G89.29 Other chronic pain; D47.3 Essential (hemorrhagic) thrombocythemia; Z3A.16 16 weeks gestation of pregnancy
CPT/HCPCS: 36415; 80053; 83690; 85025; 99283; 99284

== ENCOUNTER 2019-04-26 09:26 | Outpatient (CLI) | payer OTHER ==
[2019-04-26 10:33] VITALS: BP 104/65
--- NOTE | 2019-04-26 11:47 | Ultrasound Report ---
Reason: labor Procedure Date: 04/26/2019 Accession Number: [id number] / [id number] Procedure: US - OB Transvaginal CPT Code: Final Report FULL RESULT: EXAM: LIMITED OBSTETRICAL ULTRASOUND EXAM DATE: 04/26/2019 11:24 AM. CLINICAL HISTORY: labor. COMPARISON: OB FIRST TRIMESTER 01/09/2019 11:54 PM OB TRANSVAGINAL 05/09/2017 8:51 PM. TECHNIQUE: Real-time sonographic evaluation of the fetus performed by the hospital pharmacy technician. Multiple metals sales representative static images were saved for review. Additional transvaginal imaging to more accurately evaluate cervical length/placental position/etc. DATING: Established EGA 21 weeks 3 days with BISHOP 09/03/2019. GENERAL EVALUATION Santacruz . Cardiac activity: 158 bpm. movement: Visualized. Presentation: Breech. Placenta: Anterior position. Normal placenta/cervix relationship. Amniotic fluid: Normal by visual inspection. MATERNAL STRUCTURES The maternal uterine cervix is long and closed, with a transvaginal longitudinal measurement of 5 cm. IMPRESSION: 1. Santacruz live intrauterine with gestational age 21 weeks 3 days based on established BISHOP. 2. Internal uterine cervix is long and closed, with a longitudinal measurement of 5 cm as acquired transvaginally. 3. heart rate is 158 bpm. 4. Fetus is in breech presentation. 5. Normal amniotic fluid volume by visual inspection. RADIA
[2019-04-26 14:19] LABS: CANDIDA GROUP DNA NEGATIVE (NEGATIVE); CANDIDA KRUSEI DNA NEGATIVE (NEGATIVE); TRICHOMONAS VAGINALIS DNA NEGATIVE (NEGATIVE)
--- NOTE | 2019-05-05 23:29 | PROVIDER PROGRESS NOTE ---
- HPI Chief Complaint: Other ( pt here at 21.3 weeks c/o ctx that started a week and a half ago and got worse the last 2 days. Has history of labor at 24 weeks with first baby. PHUONG faxed to [facility] to obtain records. -LOF, -VB) Current : Current EDU 09/03/19 Gestation 21 Weeks and 3 Days 3 Para 2 Vital Signs Temperature 98.2 F 04/26/19 09:45 Heart Rate 85 04/26/19 09:45 Respiratory Rate 18 04/26/19 09:45 Blood Pressure 104/65 04/26/19 09:45 O2 Saturation 99 04/26/19 09:45 Temperature 98.2 F 04/26/19 09:45 Heart Rate 85 04/26/19 09:45 Respiratory Rate 18 04/26/19 09:45 Blood Pressure 104/65 04/26/19 09:45 O2 Saturation 99 04/26/19 09:45 - Exam Formal US ordered: TVCL 5 cm SVE closed/long/high FFN neg vaginitis panel pending (ETA: wnl) - Procedures OB Procedure Performed: Other (Dopplers 155; TOCO quiet) Diagnosis/Indication for NST: Other ( contractions/false labor) NST Procedure: Previable; not indicated Dopplers 155 Service Date of procedure: 04/26/19 Procedure Details: 23 yo with hx of PTD followed by [facility] here with contractions FFN negative TVCL by formal US 5 cm vaginitis panel wnl Reassured patient regarding labor; cervical length and negative FFN highly reassuring regarding risk of labor in 2 week time period Discharged to home with routine OB fu Findings: 23 yo with hx of PTD followed by [facility] here with contractions FFN negative TVCL by formal US 5 cm cervical exam closed./krystyna/high vaginitis panel wnl Reassured patient regarding labor; cervical length and negative FFN highly reassuring regarding risk of labor in 2 week time period Discharged to home with routine OB fu
== END 2019-04-26 13:11 | disposition home or self-care (01) ==
LOC: WFO 09:26 → FBP 09:32 → WFO 13:11
PROVIDERS: ATTEND Obstetrics & Gynecology
DX: O47.02 False labor before 37 completed weeks of gestation, second trimester (principal); Z3A.21 21 weeks gestation of pregnancy
CPT/HCPCS: 76817; 82731; 87661; 87801; 99214